=== PATIENT | male | born 1955 | race Caucasian/White ===

== ENCOUNTER 2019-10-13 17:18 | Observation (INO) ==
[2019-10-13] MEDS ORDERED: NS 1000 ML 1,000 ML ONE (17:37)
[2019-10-13] MEDS: NS 1000 ML 1,000 ML IV SCH (18:02)
[2019-10-13 18:24] LABS: BASOPHILS # (AUTO) 0.1 X10^3/uL (0.0-0.1); BASOPHILS % (AUTO) 0.7 % (0.2-1.0); EOSINOPHILS # (AUTO) 0.1 x10^3/uL (0.0-0.2); EOSINOPHILS % (AUTO) 1.2 % (0.9-2.9); HEMATOCRIT 36.8 % (42.0-54.0); HEMOGLOBIN 12.4 g/dL (13.5-18.0); LYMPHOCYTES % (AUTO) 38.7 % (21.0-51.0); MEAN CORPUSCULAR HEMOGLOBIN 29.8 pg (27.0-34.0); MEAN CORPUSCULAR HGB CONC 33.7 g/dL (33.0-35.0); MEAN CORPUSCULAR VOLUME 88.5 fL (80.0-100.0); MEAN PLATELET VOLUME 6.9 fL (7.4-11.0); MONOCYTES # (AUTO) 0.5 x10^3/uL (0.3-0.8); MONOCYTES % (AUTO) 6.9 % (0.0-13.0); NEUTROPHILS # (AUTO) 4.1 x10^3/uL (2.2-4.8); NEUTROPHILS % (AUTO) 52.5 % (42.0-75.0); PLATELET COUNT 563 X10^3/uL (150.0-450.0); RED BLOOD COUNT 4.16 X10^6/uL (4.7-6.0); RED CELL DISTRIBUTION WIDTH 14.3 % (11.6-16.5); WHITE BLOOD COUNT 7.8 X10^3/uL (3.6-10.0)
[2019-10-13 18:27] LABS: BILIRUBIN,URINE NEGATIVE (NEGATIVE); BLOOD/HEMOGLOBIN,URINE 1+ (NEGATIVE); GLUCOSE, URINE NEGATIVE (NEGATIVE); KETONES,URINE NEGATIVE (NEGATIVE); LEUKOCYTE ESTERASE ,URINE 1+ (NEGATIVE); NITRITES,URINE NEGATIVE (NEGATIVE); PROTEIN,URINE 2+ (NEGATIVE); UROBILINOGEN,URINE NORMAL (NORMAL)
[2019-10-13 18:29] VITALS: BMI 30.9
[2019-10-13 18:32] LABS: CALCIUM 9.6 mg/dL (8.5-10.1); CARBON DIOXIDE 26.2 mmol/L (21-32); COR CA(FOR HYPOALB) 10.4 mg/dL (8.5-10.1); CREATININE 1.59 mg/dL (0.70-1.30); TOTAL PROTEIN 8.4 g/dL (6.4-8.2)
[2019-10-13 18:41] LABS: APPEARANCE,URINE SLIGHTLY HAZY (CLEAR); COLOR,URINE YELLOW (YELLOW)
[2019-10-13 18:43] LABS: BACTERIA,URINE TRACE /HPF (NEGATIVE); RBC,URINE 0-2 /HPF (0-3); SQUAMOUS EPITHELIAL CELL,UR MODERATE /HPF (NEGATIVE)
[2019-10-13] MEDS ORDERED: NS 1000 ML 1,000 ML IV ONE (18:45)
[2019-10-13] MEDS: ZOSYN VIAL 2.25 GRAMS 2.25 G in NS 100 ML IV + SPIKE MINIBAG* 100 ML IV SCH ×2 (20:12→22:53)
--- NOTE | 2019-10-13 21:50 | RAD ---
HISTORYSOBSTUDYCHEST, 1 VIEWCOMPARISONJanuary 2019FINDINGSThe trachea is midline. The cardiac silhouette is unremarkable . The lungs are clear without focal infiltrate or effusion. The bony thorax is intact.IMPRESSIONNo acute cardiopulmonary disease.Electronically signed by: MADAY CRUZ (Oct 13, 2019 21:50:29)
[2019-10-14] MEDS ORDERED: HumuLIN R SUBCUT PRN (04:41)
[2019-10-14] MEDS: NS 1000 ML 1,000 ML IV SCH ×3 (06:13→18:01)
[2019-10-14] MEDS: ZOSYN VIAL 2.25 GRAMS 2.25 G in NS 100 ML IV + SPIKE MINIBAG* 100 ML IV SCH ×3 (06:14→20:59)
[2019-10-14 06:16] LABS: BASOPHILS % (AUTO) 0.6 % (0.2-1.0); EOSINOPHILS # (AUTO) 0.1 x10^3/uL (0.0-0.2); EOSINOPHILS % (AUTO) 1.5 % (0.9-2.9); HEMATOCRIT 36.1 % (42.0-54.0); HEMOGLOBIN 12.2 g/dL (13.5-18.0); LYMPHOCYTES # (AUTO) 2.8 X10^3/uL (1.3-2.9); LYMPHOCYTES % (AUTO) 34.7 % (21.0-51.0); MEAN CORPUSCULAR HEMOGLOBIN 29.8 pg (27.0-34.0); MEAN CORPUSCULAR HGB CONC 33.7 g/dL (33.0-35.0); MEAN CORPUSCULAR VOLUME 88.3 fL (80.0-100.0); MEAN PLATELET VOLUME 6.8 fL (7.4-11.0); MONOCYTES # (AUTO) 0.6 x10^3/uL (0.3-0.8); MONOCYTES % (AUTO) 7.4 % (0.0-13.0); NEUTROPHILS # (AUTO) 4.4 x10^3/uL (2.2-4.8); NEUTROPHILS % (AUTO) 55.8 % (42.0-75.0); PLATELET COUNT 481 X10^3/uL (150.0-450.0); RED BLOOD COUNT 4.09 X10^6/uL (4.7-6.0); RED CELL DISTRIBUTION WIDTH 14.1 % (11.6-16.5); WHITE BLOOD COUNT 7.9 X10^3/uL (3.6-10.0)
[2019-10-14 06:34] LABS: ALANINE AMINOTRANSFERASE 22 Units/L (12-78); ALBUMIN 2.7 g/dL (3.4-5.0); ALKALINE PHOSPHATASE 96 Units/L (46-116); ASPARTATE AMINO TRANSFERASE 17 Units/L (15-37); BLOOD UREA NITROGEN 14 mg/dL (7-18); CALCIUM 9.1 mg/dL (8.5-10.1); CARBON DIOXIDE 28.9 mmol/L (21-32); CHLORIDE 102 mmol/L (98-107); COR CA(FOR HYPOALB) 10.1 mg/dL (8.5-10.1); CREATININE 1.19 mg/dL (0.70-1.30); SODIUM 139 mmol/L (136-145); TOTAL PROTEIN 7.6 g/dL (6.4-8.2); eGFR NON BLACK RACES > 60 (>60)
--- NOTE | 2019-10-14 10:47 | DR.UPDATE ---
H&P Update History and Physical Update: History and Physical reviewed and patient examined. Changes noted: Yes with the following: PRESENTED TO THE OFFICE YESTERDAY WITH COMPLAINTS OF WEAKNESS, LOW BLOOD PRESSURE, SHORNTESS OF BREATH, CHILLS, AND NAUSEA. HE IS STATUS POST RIGHT KNEE REPLACEMENT ON 09/20/2019. HE REPORTS THAT SYMPTOMS STARTED AFTER HIS KNEE REPLACEMENT. HE WAS ADMITTED FOR FURTHER EVALUATION AND TREATMENT. ON ADMISSION, VITALS WREE 97.8-97-34-100%-117/68. LABS WERE OBTAINED. ABNORMAL LAB VALUES INCLUDE THE FOLLOWING: RBC 4.16, HGB 12.4, HCT 36.8, PLT COUNT 563, SODIUM 135, CHLORIDE 97, CREATININE 1.59, GLUCOSE 210, LACTIC ACID 5.1, TOTAL PROTEIN 8.4, ALBUMIN 3.0, GLOBULIN 5.4. BLOOD CULTURES WERE OBTAINED. A CHEST XRAY WAS OBTAINED AND REVEALED: NO ACUTE CARDIOPULMONARY DISEASE. HE WAS STARTED ON NORMAL SALINE AT 125ML/HR, IV ZOSYN, HUMULIN R SLIDING SCALE, AND LOVENOX 40 MG SC DAILY. TODAY, WE WILL OBTAIN A BNP, D-DIMER, AND CHEST CT WITH CONTRAST. WE WILL RESUME HIS HOME MEDICATIONS. OTHERWISE, WE WILL FOLLOW UP WITH AM LABS AND CONTINUE TO [facility]. Prescription drug monitoring program results: PDMP was not reviewed H&P Reviewed: Yes Patient was examined?: Yes
[2019-10-14] MEDS: LOVENOX INJ 40 MG SYR SC SCH (12:25)
--- NOTE | 2019-10-14 13:23 | VAS ---
HISTORYRLE EDEMA, S/P RT TKR X A FEW WEEKS AGOSTUDYLOWER EXT VENOUS, UNILATERALCOMPARISONNoneTECHNIQUEMultiple magaña scale and color flow Doppler images of the deep venous system were obtained of the right lower extremity.FINDINGSThe deep venous system of the right low er extremities were evaluated from the level of the common femoral vein INCLUDING THE GREATER SAPHEN OUS VEIN PROXIMALLY through the posterior tibia vein. Normal color flow and augmentation can be obser mirela. In addition, normal compression is seen throughout the deep venous system.IMPRESSIONNegative fo r DVT in the right lower extremity..Electronically signed by: GENOVEVA ROSADO (Oct 14, 2019 13:21:43)
[2019-10-14] MEDS ORDERED: DUONEB 0.5 MG/3 MG (3 mL) NEB PRN (16:07)
[2019-10-14] MEDS: SNACK - Diabetic Appropriate PO SCH (20:48)
[2019-10-15] MEDS: NS 1000 ML 1,000 ML IV SCH ×4 (00:39→10:34)
[2019-10-15] MEDS: ZOSYN VIAL 2.25 GRAMS 2.25 G in NS 100 ML IV + SPIKE MINIBAG* 100 ML IV SCH ×3 (05:04→21:05)
[2019-10-15 06:56] LABS: BASOPHILS % (AUTO) 0.7 % (0.2-1.0); EOSINOPHILS # (AUTO) 0.1 x10^3/uL (0.0-0.2); EOSINOPHILS % (AUTO) 1.1 % (0.9-2.9); HEMATOCRIT 33.4 % (42.0-54.0); HEMOGLOBIN 11.3 g/dL (13.5-18.0); LYMPHOCYTES # (AUTO) 1.8 X10^3/uL (1.3-2.9); LYMPHOCYTES % (AUTO) 31.9 % (21.0-51.0); MEAN CORPUSCULAR HEMOGLOBIN 29.8 pg (27.0-34.0); MEAN CORPUSCULAR HGB CONC 33.8 g/dL (33.0-35.0); MEAN CORPUSCULAR VOLUME 88.2 fL (80.0-100.0); MONOCYTES # (AUTO) 0.4 x10^3/uL (0.3-0.8); MONOCYTES % (AUTO) 7.7 % (0.0-13.0); NEUTROPHILS # (AUTO) 3.4 x10^3/uL (2.2-4.8); NEUTROPHILS % (AUTO) 58.6 % (42.0-75.0); PLATELET COUNT 408 X10^3/uL (150.0-450.0); RED BLOOD COUNT 3.79 X10^6/uL (4.7-6.0); RED CELL DISTRIBUTION WIDTH 14.3 % (11.6-16.5); WHITE BLOOD COUNT 5.7 X10^3/uL (3.6-10.0)
[2019-10-15 07:20] LABS: ALANINE AMINOTRANSFERASE 25 Units/L (12-78); ALBUMIN 2.4 g/dL (3.4-5.0); ALKALINE PHOSPHATASE 85 Units/L (46-116); ASPARTATE AMINO TRANSFERASE 19 Units/L (15-37); BLOOD UREA NITROGEN 6 mg/dL (7-18); CALCIUM 8.4 mg/dL (8.5-10.1); CARBON DIOXIDE 26.3 mmol/L (21-32); CHLORIDE 107 mmol/L (98-107); COR CA(FOR HYPOALB) 9.7 mg/dL (8.5-10.1); CREATININE 0.98 mg/dL (0.70-1.30); SODIUM 141 mmol/L (136-145); TOTAL PROTEIN 6.6 g/dL (6.4-8.2); eGFR NON BLACK RACES > 60 (>60)
[2019-10-15] MEDS: LOVENOX INJ 40 MG SYR SC SCH (08:35)
[2019-10-15] MEDS ORDERED: PRASTERONE 25 MG PO SCH (09:00)
[2019-10-15] MEDS: LOPRESSOR TAB 50 MG PO SCH ×2 (10:33→20:55)
[2019-10-15] MEDS: FLOMAX PO SCH (10:33)
[2019-10-15] MEDS: CIPRO TAB 500 MG PO SCH ×2 (10:33→20:55)
[2019-10-15] MEDS: WELCHOL PO SCH (10:34)
[2019-10-15] MEDS: DIFLUCAN PO SCH (10:34)
--- NOTE | 2019-10-15 13:50 | CT ---
CTA CHEST W/WO CONTIndication: Shortness of breathTechnique: Helical CT images of the chest were obtained with IV contrast. Reformatted images in the coronal and sagittal planes and 3D MIP images were also generated for review.Comparison: 10/05/2019Findings: Contrast bolus timing is suboptimal for detection of PTE. Accounting for this, no central or large segmental pulmonary arterial filling defects are identified. There is no pulmonary arterial dilatation or evidence of right heart strain. Heart is normal in size without pericardial effusion. Coronary atherosclerotic disease and mild calcification of the thoracic aorta and proximal great vessels noted without aneurysm. Central airways are patent. There is no mediastinal or bulky hilar lymphadenopathy. The lungs are clear without focal consolidation. No pleural effusion or pneumothorax.Limited images through the upper abdomen demonstrate no acute abnormality. No aggressive osseous lesions.Impression:Suboptimal CT angiogram without evidence for central/large segmental PTE or additional acute cardiopulmonary abnormality.Electronically signed by: TREVOR COLBY (Oct 15, 2019 13:48:42)
[2019-10-15] MEDS: SNACK - Diabetic Appropriate PO SCH (20:55)
[2019-10-15] MEDS: ZOCOR TAB 20 MG PO SCH (20:56)
[2019-10-15] MEDS: NEURONTIN CAP 300 MG PO PRN (21:00)
[2019-10-16] MEDS: NS 1000 ML 1,000 ML IV SCH ×6 (02:04→21:35)
[2019-10-16] MEDS: ZOSYN VIAL 2.25 GRAMS 2.25 G in NS 100 ML IV + SPIKE MINIBAG* 100 ML IV SCH ×3 (05:17→20:59)
[2019-10-16 06:23] LABS: BASOPHILS % (AUTO) 0.7 % (0.2-1.0); EOSINOPHILS # (AUTO) 0.1 x10^3/uL (0.0-0.2); EOSINOPHILS % (AUTO) 2.1 % (0.9-2.9); HEMATOCRIT 33.6 % (42.0-54.0); HEMOGLOBIN 11.3 g/dL (13.5-18.0); LYMPHOCYTES % (AUTO) 33.4 % (21.0-51.0); MEAN CORPUSCULAR HEMOGLOBIN 29.3 pg (27.0-34.0); MEAN CORPUSCULAR HGB CONC 33.5 g/dL (33.0-35.0); MEAN CORPUSCULAR VOLUME 87.6 fL (80.0-100.0); MEAN PLATELET VOLUME 6.8 fL (7.4-11.0); MONOCYTES # (AUTO) 0.5 x10^3/uL (0.3-0.8); NEUTROPHILS # (AUTO) 3.3 x10^3/uL (2.2-4.8); NEUTROPHILS % (AUTO) 55.8 % (42.0-75.0); PLATELET COUNT 438 X10^3/uL (150.0-450.0); RED BLOOD COUNT 3.84 X10^6/uL (4.7-6.0); RED CELL DISTRIBUTION WIDTH 14.1 % (11.6-16.5); WHITE BLOOD COUNT 5.9 X10^3/uL (3.6-10.0)
[2019-10-16 06:39] LABS: ALANINE AMINOTRANSFERASE 25 Units/L (12-78); ALBUMIN 2.4 g/dL (3.4-5.0); ALKALINE PHOSPHATASE 80 Units/L (46-116); ASPARTATE AMINO TRANSFERASE 19 Units/L (15-37); BLOOD UREA NITROGEN 4 mg/dL (7-18); CALCIUM 8.4 mg/dL (8.5-10.1); CARBON DIOXIDE 25.9 mmol/L (21-32); CHLORIDE 107 mmol/L (98-107); COR CA(FOR HYPOALB) 9.7 mg/dL (8.5-10.1); COR NA(FOR HYPERGLY) 140 mmol/L (136-145); CREATININE 0.99 mg/dL (0.70-1.30); SODIUM 140 mmol/L (136-145); TOTAL PROTEIN 6.6 g/dL (6.4-8.2); eGFR NON BLACK RACES > 60 (>60)
[2019-10-16] MEDS ORDERED: POTASSIUM CHL 60 MEQ/NS 0.45% 500 ML IV PRN (07:09)
[2019-10-16] MEDS ORDERED: POTASSIUM CHL 40 MEQ/NS 0.45% 500 ML IV PRN (07:09)
[2019-10-16] MEDS ORDERED: K-RIDER 10 MEQ/NS 100 ML 10 MEQ/100 ML BAG IV PRN (07:09)
[2019-10-16] MEDS ORDERED: MICRO K EXTEN CAP 10 MEQ PO PRN (07:09)
[2019-10-16] MEDS ORDERED: KLOR-CON PO PRN (07:09)
[2019-10-16] MEDS ORDERED: POTASSIUM CHLORIDE LIQ 20 MEQ UDC PO PRN (07:09)
[2019-10-16] MEDS: FLOMAX PO SCH (09:12)
[2019-10-16] MEDS: CIPRO TAB 500 MG PO SCH ×2 (09:12→20:58)
[2019-10-16] MEDS: DIFLUCAN PO SCH (09:13)
[2019-10-16] MEDS: LOPRESSOR TAB 50 MG PO SCH ×2 (09:13→20:58)
[2019-10-16] MEDS: WELCHOL PO SCH (09:13)
[2019-10-16] MEDS: NEURONTIN CAP 300 MG PO PRN (09:13)
[2019-10-16] MEDS: K-DUR TAB 20 MEQ PO PRN (09:14)
[2019-10-16] MEDS: LOVENOX INJ 40 MG SYR SC SCH (09:15)
[2019-10-16] MEDS: MAGNESIUM SULFATE 1 GRAM/100 mL PREMIX 1 GM/100 ML BAG IV PRN ×2 (09:15→10:30)
[2019-10-16] MEDS: PRASTERONE 25 MG PO SCH (12:05)
[2019-10-16] MEDS: SNACK - Diabetic Appropriate PO SCH (19:30)
[2019-10-16] MEDS: ZOCOR TAB 20 MG PO SCH (20:59)
[2019-10-16] MEDS: ULTRAM PO PRN (22:00)
[2019-10-17] MEDS: NS 1000 ML 1,000 ML IV SCH ×3 (05:38→17:26)
[2019-10-17] MEDS: ZOSYN VIAL 2.25 GRAMS 2.25 G in NS 100 ML IV + SPIKE MINIBAG* 100 ML IV SCH ×3 (05:39→22:11)
[2019-10-17 06:06] LABS: BASOPHILS % (AUTO) 0.7 % (0.2-1.0); EOSINOPHILS # (AUTO) 0.2 x10^3/uL (0.0-0.2); EOSINOPHILS % (AUTO) 2.8 % (0.9-2.9); HEMATOCRIT 32.6 % (42.0-54.0); LYMPHOCYTES # (AUTO) 2.5 X10^3/uL (1.3-2.9); LYMPHOCYTES % (AUTO) 37.5 % (21.0-51.0); MEAN CORPUSCULAR HGB CONC 33.7 g/dL (33.0-35.0); MEAN CORPUSCULAR VOLUME 89.1 fL (80.0-100.0); MEAN PLATELET VOLUME 7.3 fL (7.4-11.0); MONOCYTES # (AUTO) 0.5 x10^3/uL (0.3-0.8); MONOCYTES % (AUTO) 8.1 % (0.0-13.0); NEUTROPHILS # (AUTO) 3.4 x10^3/uL (2.2-4.8); NEUTROPHILS % (AUTO) 50.9 % (42.0-75.0); PLATELET COUNT 408 X10^3/uL (150.0-450.0); RED BLOOD COUNT 3.66 X10^6/uL (4.7-6.0); RED CELL DISTRIBUTION WIDTH 14.3 % (11.6-16.5); WHITE BLOOD COUNT 6.7 X10^3/uL (3.6-10.0)
[2019-10-17 06:15] LABS: ALANINE AMINOTRANSFERASE 24 Units/L (12-78); ALBUMIN 2.4 g/dL (3.4-5.0); ALKALINE PHOSPHATASE 75 Units/L (46-116); ASPARTATE AMINO TRANSFERASE 16 Units/L (15-37); BLOOD UREA NITROGEN 6 mg/dL (7-18); CARBON DIOXIDE 25.1 mmol/L (21-32); CHLORIDE 107 mmol/L (98-107); COR CA(FOR HYPOALB) 9.3 mg/dL (8.5-10.1); COR NA(FOR HYPERGLY) 141 mmol/L (136-145); CREATININE 1.02 mg/dL (0.70-1.30); MAGNESIUM 1.7 mg/dL (1.7-2.9); SODIUM 140 mmol/L (136-145); TOTAL PROTEIN 6.2 g/dL (6.4-8.2); eGFR NON BLACK RACES > 60 (>60)
[2019-10-17] MEDS: K-DUR TAB 20 MEQ PO PRN (06:44)
[2019-10-17] MEDS: ULTRAM PO PRN (06:56)
[2019-10-17] MEDS: NEURONTIN CAP 300 MG PO PRN (09:00)
[2019-10-17] MEDS: WELCHOL PO SCH (09:01)
[2019-10-17] MEDS: CIPRO TAB 500 MG PO SCH (09:01)
[2019-10-17] MEDS: LOVENOX INJ 40 MG SYR SC SCH (09:01)
[2019-10-17] MEDS: LOPRESSOR TAB 50 MG PO SCH ×2 (09:02→20:31)
[2019-10-17] MEDS: FLOMAX PO SCH (09:02)
[2019-10-17] MEDS: PRASTERONE 25 MG PO SCH (09:02)
[2019-10-17] MEDS: DIFLUCAN PO SCH (09:03)
--- NOTE | 2019-10-17 11:47 | PCM.PROG ---
Progress Note Progress Note for Day of Date of Exam: 10/17/19 Subjective Subjective: Pt is a 64 yo m admitted for acute hypotension, weakness, shortness of breath, chills, and nausea. He was initially acidotic with a LA 5.1 that has now normalized. He had recent Venous duplex of BLE negative for DVT and CT negative for PE. His BloodCX 2/2 gram positive cocci, awaiting speciation. He is currently on Zosyn, Cipro, and Diflucan. Will repeat bloodcx today. D/c Cipro and add Vancomycin for MRSA coverage. Continue to monitor and follow up AM labs. Past Medical Family Social History Past Med/Fam/Surg Hx: No changes since H&P Allergies: Allergies No Known Drug Allergies Allergy (Verified 10/13/19 17:59) Review of Systems ROS: No change since H&P Vital Signs and I&O's Vital Signs: Temperature 98.5 F Pulse Rate [Right Brachial] 73 Pulse Rate [Left Brachial] 90 Pulse Rate 84 Respiratory Rate 19 Blood Pressure [Right Arm] 171/87 Blood Pressure [Left Arm] 120/67 Blood Pressure 118/67 O2 Sat by Pulse Oximetry 99 Intake and Output: Intake & Output 10/14/19 10/15/19 10/16/19 10/17/19 23:59 23:59 23:59 23:59 Intake Total 2490 / 2490 1580 / 1580 3205 / 3205 60 / 60 Output Total 450 / 450 Balance 2040 / 2040 1580 / 1580 3205 / 3205 60 / 60 Physical Exam Oriented: Normal Eyes: Normal Ear: Normal Nose: Normal Throat: Normal Respiratory: Normal Cardiovascular: Normal : Normal Auscultation: Bowel Sounds: Normal Tenderness: Normal Skin: Normal Musculoskeletal: Normal Psychiatric: Normal Mood Description: Calm Speech Pattern: Clear and Appropriate Laboratory and Diagnostics Result Diagrams: 10/17/19 05:20 10/17/19 05:20 Labs: 10/13/19 17:53 Blood Blood Culture - Preliminary 10/13/19 17:49 Blood Blood Culture - Preliminary Laboratory WBC 6.7 X10^3/uL (3.6-10.0) 10/17/19 05:20 RBC 3.66 X10^6/uL (4.7-6.0) L 10/17/19 05:20 Hgb 11.0 g/dL (13.5-18.0) L 10/17/19 05:20 Hct 32.6 % (42.0-54.0) L 10/17/19 05:20 MCV 89.1 fL (80.0-100.0) 10/17/19 05:20 MCH 30.0 pg (27.0-34.0) 10/17/19 05:20 MCHC 33.7 g/dL (33.0-35.0) 10/17/19 05:20 RDW 14.3 % (11.6-16.5) 10/17/19 05:20 Plt Count 408 X10^3/uL (150.0-450.0) 10/17/19 05:20 MPV 7.3 fL (7.4-11.0) L 10/17/19 05:20 Neut % (Auto) 50.9 % (42.0-75.0) 10/17/19 05:20 Lymph % (Auto) 37.5 % (21.0-51.0) 10/17/19 05:20 [place] % (Auto) 8.1 % (0.0-13.0) 10/17/19 05:20 Eos % (Auto) 2.8 % (0.9-2.9) 10/17/19 05:20 Baso % (Auto) 0.7 % (0.2-1.0) 10/17/19 05:20 Neut # (Auto) 3.4 x10^3/uL (2.2-4.8) 10/17/19 05:20 Lymph # (Auto) 2.5 X10^3/uL (1.3-2.9) 10/17/19 05:20 [place] # (Auto) 0.5 x10^3/uL (0.3-0.8) 10/17/19 05:20 Eos # (Auto) 0.2 x10^3/uL (0.0-0.2) 10/17/19 05:20 Baso # (Auto) 0.0 X10^3/uL (0.0-0.1) 10/17/19 05:20 Absolute Nucleated RBC 0.1 /100WBC 10/17/19 05:20 D-Dimer 3620 ng/mL (0-400) H* 10/14/19 05:33 Sodium 140 mmol/L (136-145) 10/17/19 05:20 Corrected Sodium 141 mmol/L (136-145) 10/17/19 05:20 Potassium 3.6 mmol/L (3.5-5.1) 10/17/19 05:20 Chloride 107 mmol/L (98-107) 10/17/19 05:20 Carbon Dioxide 25.1 mmol/L (21-32) 10/17/19 05:20 BUN 6 mg/dL (7-18) L 10/17/19 05:20 Creatinine 1.02 mg/dL (0.70-1.30) 10/17/19 05:20 Est GFR (MDRD) Af Amer > 60 (>60) 10/17/19 05:20 Est GFR (MDRD) Non-Af > 60 (>60) 10/17/19 05:20 Glucose 123 mg/dL (65-99) H 10/17/19 05:20 POC Glucose (mg/dL) 116 mg/dL (65-99) H 10/17/19 05:25 Lactic Acid 1.5 mmol/L (0.4-2.0) 10/14/19 00:57 Calcium 8.0 mg/dL (8.5-10.1) L 10/17/19 05:20 Corrected Calcium 9.3 mg/dL (8.5-10.1) 10/17/19 05:20 Magnesium 1.7 mg/dL (1.7-2.9) 10/17/19 05:20 Total Bilirubin 0.20 mg/dL (0.2-1.0) 10/17/19 05:20 AST 16 Units/L (15-37) 10/17/19 05:20 ALT 24 Units/L (12-78) 10/17/19 05:20 Alkaline Phosphatase 75 Units/L (46-116) 10/17/19 05:20 B-Natriuretic Peptide 10.5 pg/mL (0-79) 10/14/19 05:33 Total Protein 6.2 g/dL (6.4-8.2) L 10/17/19 05:20 Albumin 2.4 g/dL (3.4-5.0) L 10/17/19 05:20 Globulin 3.8 g/dL (2.5-4.5) 10/17/19 05:20 Albumin/Globulin Ratio 0.6 Ratio (1.1-2.1) L 10/17/19 05:20 Specimen Type Clean catch urine 10/13/19 18:05 Urine Color Yellow (YELLOW) 10/13/19 18:05 Urine Appearance Slightly hazy (CLEAR) 10/13/19 18:05 Urine pH 5.0 (5.0 - 8.0) 10/13/19 18:05 Ur Specific [place] 1.025 (1.000-1.030) 10/13/19 18:05 Urine Protein 2+ (NEGATIVE) 10/13/19 18:05 Urine Glucose (UA) Negative (NEGATIVE) 10/13/19 18: Urine Ketones Negative (NEGATIVE) 10/13/19 18:05 Urine Occult Blood 1+ (NEGATIVE) 10/13/19 18:05 Urine Nitrite Negative (NEGATIVE) 10/13/19 18: Urine Bilirubin Negative (NEGATIVE) 10/13/19 18:05 Urine Urobilinogen Normal (NORMAL) 10/13/19 18:05 Ur Leukocyte Esterase 1+ (NEGATIVE) 10/13/19 18:05 Urine RBC 0-2 /HPF (0-3) 10/13/19 18:05 Urine WBC 0-2 /HPF (0-5) 10/13/19 18:05 Ur Squamous Epith Cells Moderate /HPF (NEGATIVE) 10/13/19 18:05 Urine Bacteria Trace /HPF (NEGATIVE) 10/13/19 18:05 Ur Culture Indicated? No/not indicated 10/13/19 18:05 Plan (1) Bacteremia due to Gram-positive bacteria: Status: Acute Plan: Abx:Vanc+Zosyn Repeat BloodCx
[2019-10-17] MEDS ORDERED: PHARMACY CONSULT - VANCOMYCIN XX SCH (12:00)
[2019-10-17] MEDS ORDERED: NS 250 ML IV 250 ML IV ONE (14:22)
[2019-10-17] MEDS ORDERED: VANCOMYCIN HCL ONE ×2 (14:23)
[2019-10-17] MEDS: VANCOMYCIN HCL 250 MG, VANCOMYCIN HCL 1 G in NS 250 ML IV 250 ML IV SCH (14:52)
[2019-10-17] MEDS: SNACK - Diabetic Appropriate PO SCH (20:31)
[2019-10-17] MEDS: ZOCOR TAB 20 MG PO SCH (20:32)
--- NOTE | 2019-10-17 21:55 | PCM.PROG ---
Progress Note - Progress Note for Day of Date of Exam: 10/15/19 - Subjective Subjective: WAS ADMITTED FOR WEAKNESS, DEHYRATION, HYPOTENSION, AND SHORTNESS OF BREATH. HE IS STATUS POST RECENT RIGHT TKA. TODAY, HE CONTINUES WITH COMPLAINTS OF WEAKNESS AND SHORTNESS OF BREATH. HE IS NOTED WITH LABORED BREATHING ON MORNING ROUNDS. ON EXAMINATION, HEART IS REGULAR IN RATE AND RHYTHM. BILATERAL LUNGS ARE NOTED WITH DIMINISHED LUNG SOUNDS THROUGHOUT. ABDOMEN IS ROUND, SOFT, AND NON-TENDER WITH NORMAL BOWEL SOUNDS NOTED IN ALL QUADRANTS. NO LOWER EXTREMITY SWELLING IS NOTED. HIS VITALS THIS MORNING ARE: 98.9-100-20-97%-139/81. LABS WERE OBTAINED. ABNORMAL LAB VALUES INCLUDE THE FOLLOWING: RBC 3.79, HGB 11.3, HCT 33.4, BUN6, GLUCOSE 110, CALCIUM 8.4, ALBUMIN 2.4. BLOOD CULTURES ARE PENDING. VENOUS DOPPLER WAS OBTAINED YESTERDAY AND IS NEGATIVE FOR DVT. HE IS CURRENTLY RECEIVING IV FLUIDS, IV CIPRO, IV ZOSYN. TODAY, WE WILL OBTAIN A CHEST CT WITH CONTRAST TO RULE OUT PE. OTHERWISE, WE PLAN TO FOLLOW UP WITH AM LABS AND CONTINUE TO MONITOR. - Past Medical Family Social History Past Med/Fam/Surg Hx: No changes since H&P Allergies: Allergies No Known Drug Allergies Allergy (Verified 10/13/19 17:59) - Review of Systems ROS: No change since H&P - Vital Signs and I&O's Vital Signs: Temperature 98.2 F Pulse Rate [Right Brachial] 76 Pulse Rate [Left Brachial] 90 Pulse Rate 85 Respiratory Rate 20 Blood Pressure [Right Arm] 145/95 Blood Pressure [Left Arm] 153/80 Blood Pressure 118/67 O2 Sat by Pulse Oximetry 95 Intake and Output: Intake & Output 10/15/19 10/16/19 10/17/19 10/18/19 11:59 11:59 11:59 11:59 Intake Total 2440 / 2440 2059 2785 / 2785 1560 / 1560 Balance 2440 / 2440 2059 2785 / 2785 1560 / 1560 - Physical Exam Oriented: Normal Eyes: Normal Ear: Normal Nose: Normal Throat: Normal Respiratory: Generalized, Diminished Cardiovascular: Normal : Normal Auscultation: Bowel Sounds: Normal Palpation: Normal Tenderness: Normal Skin: Normal Musculoskeletal: Normal Psychiatric: Normal Mood Description: Calm Speech Pattern: Clear, Appropriate - Laboratory and Diagnostics Result Diagrams: 10/17/19 05:20 10/17/19 05:20 Labs: 10/13/19 17:53 Blood Blood Culture - Preliminary 10/13/19 17:49 Blood Blood Culture - Preliminary Laboratory WBC 6.7 X10^3/uL (3.6-10.0) 10/17/19 05:20 RBC 3.66 X10^6/uL (4.7-6.0) L 10/17/19 05:20 Hgb 11.0 g/dL (13.5-18.0) L 10/17/19 05:20 Hct 32.6 % (42.0-54.0) L 10/17/19 05:20 MCV 89.1 fL (80.0-100.0) 10/17/19 05:20 MCH 30.0 pg (27.0-34.0) 10/17/19 05:20 MCHC 33.7 g/dL (33.0-35.0) 10/17/19 05:20 RDW 14.3 % (11.6-16.5) 10/17/19 05:20 Plt Count 408 X10^3/uL (150.0-450.0) 10/17/19 05:20 MPV 7.3 fL (7.4-11.0) L 10/17/19 05:20 Neut % (Auto) 50.9 % (42.0-75.0) 10/17/19 05:20 Lymph % (Auto) 37.5 % (21.0-51.0) 10/17/19 05:20 [place] % (Auto) 8.1 % (0.0-13.0) 10/17/19 05:20 Eos % (Auto) 2.8 % (0.9-2.9) 10/17/19 05:20 Baso % (Auto) 0.7 % (0.2-1.0) 10/17/19 05:20 Neut # (Auto) 3.4 x10^3/uL (2.2-4.8) 10/17/19 05:20 Lymph # (Auto) 2.5 X10^3/uL (1.3-2.9) 10/17/19 05:20 [place] # (Auto) 0.5 x10^3/uL (0.3-0.8) 10/17/19 05:20 Eos # (Auto) 0.2 x10^3/uL (0.0-0.2) 10/17/19 05:20 Baso # (Auto) 0.0 X10^3/uL (0.0-0.1) 10/17/19 05:20 Absolute Nucleated RBC 0.1 /100WBC 10/17/19 05:20 D-Dimer 3620 ng/mL (0-400) H* 10/14/19 05:33 Sodium 140 mmol/L (136-145) 10/17/19 05:20 Corrected Sodium 141 mmol/L (136-145) 10/17/19 05:20 Potassium 3.6 mmol/L (3.5-5.1) 10/17/19 05:20 Chloride 107 mmol/L (98-107) 10/17/19 05:20 Carbon Dioxide 25.1 mmol/L (21-32) 10/17/19 05:20 BUN 6 mg/dL (7-18) L 10/17/19 05:20 Creatinine 1.02 mg/dL (0.70-1.30) 10/17/19 05:20 Est GFR (MDRD) Af Amer > 60 (>60) 10/17/19 05:20 Est GFR (MDRD) Non-Af > 60 (>60) 10/17/19 05:20 Glucose 123 mg/dL (65-99) H 10/17/19 05:20 POC Glucose (mg/dL) 132 mg/dL (65-99) H 10/17/19 20:00 Lactic Acid 1.5 mmol/L (0.4-2.0) 10/14/19 00:57 Calcium 8.0 mg/dL (8.5-10.1) L 10/17/19 05:20 Corrected Calcium 9.3 mg/dL (8.5-10.1) 10/17/19 05:20 Magnesium 1.7 mg/dL (1.7-2.9) 10/17/19 05:20 Total Bilirubin 0.20 mg/dL (0.2-1.0) 10/17/19 05:20 AST 16 Units/L (15-37) 10/17/19 05:20 ALT 24 Units/L (12-78) 10/17/19 05:20 Alkaline Phosphatase 75 Units/L (46-116) 10/17/19 05:20 B-Natriuretic Peptide 10.5 pg/mL (0-79) 10/14/19 05:33 Total Protein 6.2 g/dL (6.4-8.2) L 10/17/19 05:20 Albumin 2.4 g/dL (3.4-5.0) L 10/17/19 05:20 Globulin 3.8 g/dL (2.5-4.5) 10/17/19 05:20 Albumin/Globulin Ratio 0.6 Ratio (1.1-2.1) L 10/17/19 05:20 Specimen Type Clean catch urine 10/13/19 18:05 Urine Color Yellow (YELLOW) 10/13/19 18:05 Urine Appearance Slightly hazy (CLEAR) 10/13/19 18:05 Urine pH 5.0 (5.0 - 8.0) 10/13/19 18:05 Ur Specific [place] 1.025 (1.000-1.030) 10/13/19 18:05 Urine Protein 2+ (NEGATIVE) 10/13/19 18:05 Urine Glucose (UA) Negative (NEGATIVE) 10/13/19 18:05 Urine Ketones Negative (NEGATIVE) 10/13/19 18:05 Urine Occult Blood 1+ (NEGATIVE) 10/13/19 18:05 Urine Nitrite Negative (NEGATIVE) 10/13/19 18:05 Urine Bilirubin Negative (NEGATIVE) 10/13/19 18:05 Urine Urobilinogen Normal (NORMAL) 10/13/19 18:05 Ur Leukocyte Esterase 1+ (NEGATIVE) 10/13/19 18:05 Urine RBC 0-2 /HPF (0-3) 10/13/19 18:05 Urine WBC 0-2 /HPF (0-5) 10/13/19 18:05 Ur Squamous Epith Cells Moderate /HPF (NEGATIVE) 10/13/19 18:05 Urine Bacteria Trace /HPF (NEGATIVE) 10/13/19 18:05 Ur Culture Indicated? No/not indicated 10/13/19 18:05 - Plan (1) Dehydration Status: Acute Plan: IV FLUIDS, CONTINUE TO MONITOR (2) Weakness Status: Acute (3) Dyspnea Status: Acute Qualifiers: Dyspnea type: shortness of breath Qualified Code(s): R06.02 - Shortness of breath; R06.00 - Dyspnea, unspecified; R06.01 - Orthopnea Plan: OBTAIN CHEST CTA, CONTINUE TO MONITOR (4) Status post right knee replacement Status: Acute (5) Positive blood cultures Status: Acute Plan: IV CIPRO, IV ZOSYN, CONTINUE TO MONITOR
[2019-10-18] MEDS ORDERED: NS 250 ML IV 250 ML IV ONE (01:31)
[2019-10-18] MEDS ORDERED: VANCOMYCIN HCL ONE ×2 (01:31)
[2019-10-18] MEDS: VANCOMYCIN HCL 250 MG, VANCOMYCIN HCL 1 G in NS 250 ML IV 250 ML IV SCH (02:08)
[2019-10-18] MEDS: NS 1000 ML 1,000 ML IV SCH ×2 (02:08→07:00)
[2019-10-18] MEDS: ZOSYN VIAL 2.25 GRAMS 2.25 G in NS 100 ML IV + SPIKE MINIBAG* 100 ML IV SCH (06:01)
[2019-10-18 06:18] LABS: BASOPHILS % (AUTO) 0.4 % (0.2-1.0); EOSINOPHILS # (AUTO) 0.2 x10^3/uL (0.0-0.2); EOSINOPHILS % (AUTO) 3.7 % (0.9-2.9); HEMATOCRIT 33.2 % (42.0-54.0); HEMOGLOBIN 10.9 g/dL (13.5-18.0); LYMPHOCYTES # (AUTO) 2.4 X10^3/uL (1.3-2.9); LYMPHOCYTES % (AUTO) 37.2 % (21.0-51.0); MEAN CORPUSCULAR HEMOGLOBIN 29.1 pg (27.0-34.0); MEAN CORPUSCULAR VOLUME 88.3 fL (80.0-100.0); MEAN PLATELET VOLUME 6.8 fL (7.4-11.0); MONOCYTES # (AUTO) 0.5 x10^3/uL (0.3-0.8); MONOCYTES % (AUTO) 7.6 % (0.0-13.0); NEUTROPHILS # (AUTO) 3.3 x10^3/uL (2.2-4.8); NEUTROPHILS % (AUTO) 51.1 % (42.0-75.0); PLATELET COUNT 386 X10^3/uL (150.0-450.0); RED BLOOD COUNT 3.76 X10^6/uL (4.7-6.0); RED CELL DISTRIBUTION WIDTH 13.9 % (11.6-16.5); WHITE BLOOD COUNT 6.5 X10^3/uL (3.6-10.0)
[2019-10-18 06:27] LABS: ALANINE AMINOTRANSFERASE 24 Units/L (12-78); ALBUMIN 2.3 g/dL (3.4-5.0); ALKALINE PHOSPHATASE 76 Units/L (46-116); ASPARTATE AMINO TRANSFERASE 15 Units/L (15-37); BLOOD UREA NITROGEN 5 mg/dL (7-18); CALCIUM 8.4 mg/dL (8.5-10.1); CARBON DIOXIDE 25.3 mmol/L (21-32); CHLORIDE 107 mmol/L (98-107); COR CA(FOR HYPOALB) 9.8 mg/dL (8.5-10.1); COR NA(FOR HYPERGLY) 140 mmol/L (136-145); CREATININE 0.91 mg/dL (0.70-1.30); SODIUM 140 mmol/L (136-145); TOTAL PROTEIN 6.3 g/dL (6.4-8.2); eGFR NON BLACK RACES > 60 (>60)
[2019-10-18] MEDS: WELCHOL PO SCH (08:42)
[2019-10-18] MEDS: DIFLUCAN PO SCH (08:42)
[2019-10-18] MEDS: ULTRAM PO PRN (08:42)
[2019-10-18] MEDS: FLOMAX PO SCH (08:43)
[2019-10-18] MEDS: LOPRESSOR TAB 50 MG PO SCH (08:43)
[2019-10-18] MEDS: LOVENOX INJ 40 MG SYR SC SCH (08:45)
[2019-10-18 08:48] VITALS: BP 133/80
[2019-10-18] MEDS ORDERED: PHARMACY COMMENT IV NR (20:30)
== END 2019-10-18 12:00 | disposition home or self-care (01) ==
LOC: MED/SURG
PROVIDERS: ADMIT Internal Medicine; ATTEND Internal Medicine
DX: R60.0 Localized edema; Z96.651 Presence of right artificial knee joint; E11.65 Type 2 diabetes mellitus with hyperglycemia; R26.89 Other abnormalities of gait and mobility; I95.89 Other hypotension; J44.9 Chronic obstructive pulmonary disease, unspecified; R06.02 Shortness of breath; A41.1 Sepsis due to other specified staphylococcus; F41.8 Other specified anxiety disorders; E86.0 Dehydration; R53.1 Weakness
CPT/HCPCS: 36415; 71010; 71045; 71275; 80053; 81001; 83605; 83735; 83880; 85025; 85378; 87040; 87077; 87186; 93971; 94760; 96360; 96361; 96372; 97162; 97165; 97530; A4216; A4222; G0378; J1650; J2543; J3370; J3475; J7030; J7050

== ENCOUNTER 2021-02-09 08:46 | Inpatient (IN) ==
[2021-02-09] MEDS ORDERED: MORPHINE SULFATE INJ 4 MG IVP STA (09:05)
[2021-02-09] MEDS ORDERED: NS 1000 ML 1,000 ML IV STA (09:05)
[2021-02-09] MEDS ORDERED: ZOFRAN INJ 4 MG VIAL IVP STA (09:05)
--- NOTE | 2021-02-09 09:05 | DR.UPM ---
HPI Time Seen Time Seen by Provider: 02/09/21 08:55 HPI Comment HPI Comment: PATIENT WITH A HISTORY OF TYPE 2 DIABETES COMPLAINS OF URINARY SYMPTOMS, URGENCY, FREQUENCY AND DYSURIA X 1 WEEK, ASSOCIATED WITH LEFT FLANK PAIN AND LOWER ABDOMINAL PAIN. HAS CHEST TIGHTNESS AND PAIN UPON INSPIRATION. DENIES FEVER, CHILLS, NAUSEA, EMESIS, DIARRHEA OR HEMATURIA. Complaint Chief Complaint Doctors Comments: DYSURIA, FREQUENCY, URGENCY, LEFT FLANK PAIN, RIGHT LOWER ABDOMINAL PAIN Reviewed Nurses Notes Reviewed: Yes Source History Provided: Patient Mode of Arrival Mode of Arrival: EMS Duration Duration: Constant How lon Duration: Days Context Urinary Symptoms: Dysuria, Frequency and Urgency Severity Pain: Severe Location Pain Location: Abdomen, Left and Flank Associated Signs and Symptoms Associated Signs and Symptoms: Nausea PMH PMH Past Medical History: Diabetes Past Surgical History: Yes Surgical History: Cholecystectomy, Joint Replacement and Other Family History Family Medical History: Diabetes Mellitus, Cancer and PR Social History Do you use any recreational Drugs:: No ROS Review of Systems Constitutional: No Symptoms Reported Eyes: No Symptoms Reported ENTM: No Symptoms Reported Respiratoy: No Symptoms Reported Cardiovascular: No Symptoms Reported Gastrointestinal/Abdominal: See HPI and Abdominal Pain Genitourinary: See HPI, Dysuria, Frequency and Pain Neurological: No Symptoms Reported Musculoskeletal: No Symptoms Reported Integumentary: No Symptoms Reported Hematologic/Lymphatic: No Symptoms Reported Endocrine: No Symptoms Reported Psychiatric: No Symptoms Reported All Other Systems: Reviewed and Negative PE Vital Signs Vitals: Temperature 97.7 F Pulse Rate 86 Respiratory Rate 16 Blood Pressure [Right Arm] 145/95 Blood Pressure [Left Arm] 133/80 Blood Pressure 128/77 O2 Sat by Pulse Oximetry 97 General Limitations: No Limitations General Appearance: Alert and In Distress (MINIMAL) Head Head Exam: Normal Inspection and Atraumatic Eyes Eye exam: Normal Appearance, PERRL and EOMI ENT ENT Exam: Normal Exam and Normal Oropharynx Neck Neck Exam: Normal Inspection and Full ROM Chest Chest Inspection: Normal Inspection and Symmetric Chest Wall Rise Respiratory Respiratory Exam: Normal Lung Sounds Bilat Respiratory Exam: Bilateral: Clear to Auscultation Cardiovascular Cardiovascular Exam: Regular Rate and Normal Rhythm Abdominal Exam Abdominal Exam: Normal Inspection, Normal Bowel Sounds, Soft and Tenderness ( BILATERAL LOWER QUADRANT, WITH GUARDING) Abdominal Tenderness: RLQ, LUQ and Moderate Extremities Extremities Exam: Normal Inspection, Full ROM and Tenderness Back Back Exam: Normal Inspection and (R) CVA Tenderness Neurologic Neurological Exam: Alert and Oriented X3 Psychiatric Psychiatric Exam: Normal Affect and Normal Mood Skin Skin Exam: Warm, Dry and Intact MDM Differential Diagnosis Differential Diagnosis: Appendicitis, Pyelonephritis and Urolithiasis Other Differential Diagnosis: ACUTE COLITIS, NEPHROLITHIASIS, URINARY TRACT INFECTION COURSE Treatment Treatment: IV NORMAL SALINE 200ML/HR, ZOFRAN 4MG, MORPHINE 4MG IV, 1026 PLACED ON SEPSIS PROTOCOL 97KG/30ML, LACTIC ACID 3.6, WBC 20,8OO, URINE WITH WBC TNTC, SAUL 2+, AFTER 2 SETS OF BLOOD CULTURES, LEVAQUIN 750MG IVPB AND FLAGYL 500MG IVPB Reevaluation 1st: Improved Consultation Call Returned: 11:53 Consultation Comments: DISCUSSED FINDINGS WITH DR DORADO FOR SURGICAL CONSULT, DR NORRIS AT 1200 NOTIFIED FOR ADMIT INPATIENT ROR Labs Reviewed Laboratory Results Reviewed?: Yes Result Diagrams: 02/09/21 09:31 02/09/21 09:31 Laboratory: WBC 20.8 X10^3/uL (3.6-10.0) H 02/09/21 09:31 RBC 4.49 X10^6/uL (4.7-6.0) L 02/09/21 09:31 Hgb 13.2 g/dL (13.5-18.0) L 02/09/21 09:31 Hct 39.3 % (42.0-54.0) L 02/09/21 09:31 MCV 87.7 fL (80.0-100.0) 02/09/21 09:31 MCH 29.5 pg (27.0-34.0) 02/09/21 09:31 MCHC 33.6 g/dL (33.0-35.0) 02/09/21 09:31 RDW 13.6 % (11.6-16.5) 02/09/21 09:31 Plt Count 563 X10^3/uL (150.0-450.0) H 02/09/21 09:31 MPV 7.2 fL (7.4-11.0) L 02/09/21 09:31 Neut % (Auto) 88.8 % (42.0-75.0) H 02/09/21 09:31 Lymph % (Auto) 5.5 % (21.0-51.0) L 02/09/21 09:31 [place] % (Auto) 5.2 % (0.0-13.0) 02/09/21 09:31 Eos % (Auto) 0.1 % (0.9-2.9) L 02/09/21 09:31 Baso % (Auto) 0.4 % (0.2-1.0) 02/09/21 09:31 Neut # (Auto) 18.4 x10^3/uL (2.2-4.8) H 02/09/21 09:31 Lymph # (Auto) 1.2 X10^3/uL (1.3-2.9) L 02/09/21 09:31 [place] # (Auto) 1.1 x10^3/uL (0.3-0.8) H 02/09/21 09:31 Eos # (Auto) 0.0 x10^3/uL (0.0-0.2) 02/09/21 09: Baso # (Auto) 0.1 X10^3/uL (0.0-0.1) 02/09/21 09:31 Absolute Nucleated RBC 0.0 /100WBC 02/09/21 09:31 PT 14.8 SECONDS (11.8-14.3) 02/09/21 09:31 INR Target Range - 02/09/21 09:31 INR 1.22 (0.8-1.3) 02/09/21 09:31 Sodium 131 mmol/L (136-145) L 02/09/21 09:31 Corrected Sodium 137 mmol/L (136-145) 02/09/21 09:31 Potassium 4.0 mmol/L (3.5-5.1) 02/09/21 09:31 Chloride 97 mmol/L (98-107) L 02/09/21 09:31 Carbon Dioxide 25.2 mmol/L (21-32) 02/09/21 09:31 BUN 16 mg/dL (7-18) 02/09/21 09:31 Creatinine 1.65 mg/dL (0.70-1.30) H 02/09/21 09:31 Est GFR (MDRD) Af Amer 54 (>60) L 02/09/21 09:31 Est GFR (MDRD) Non-Af 45 (>60) L 02/09/21 09:31 Glucose 345 mg/dL (65-99) H 02/09/21 09:31 POC Glucose (mg/dL) 171 mg/dL (65-99) H 02/09/21 12:40 Lactic Acid 3.6 mmol/L (0.4-2.0) H 02/09/21 09:31 Calcium 9.2 mg/dL (8.5-10.1) 02/09/21 09:31 Corrected Calcium 10.3 mg/dL (8.5-10.1) H 02/09/21 09:31 Total Bilirubin 0.70 mg/dL (0.2-1.0) 02/09/21 09:31 AST 11 Units/L (15-37) L 02/09/21 09:31 ALT 19 Units/L (12-78) 02/09/21 09:31 Alkaline Phosphatase 100 Units/L (46-116) 02/09/21 09:31 Troponin I < 0.02 ng/mL (0-1.5) 02/09/21 09:31 Total Protein 8.3 g/dL (6.4-8.2) H 02/09/21 09:31 Albumin 2.6 g/dL (3.4-5.0) L 02/09/21 09:31 Globulin 5.7 g/dL (2.5-4.5) H 02/09/21 09:31 Albumin/Globulin Ratio 0.5 Ratio (1.1-2.1) L 02/09/21 09:31 Amylase 20 Units/L (25-115) L 02/09/21 09:31 Lipase 90 Units/L (73-393) 02/09/21 09:31 Specimen Type Clean catch urine 02/09/21 09:25 Urine Color [place] (YELLOW) 02/09/21 09:25 Urine Appearance Cloudy (CLEAR) 02/09/21 09:25 Urine pH Cancelled 02/09/21 09:25 Ur Specific [place] Cancelled 02/09/21 09:25 Urine Protein Cancelled 02/09/21 09:25 Urine Glucose (UA) Cancelled 02/09/21 09:25 Urine Ketones Cancelled 02/09/21 09:25 Urine Occult Blood Cancelled 02/09/21 09:25 Urine Nitrite Cancelled 02/09/21 09:25 Urine Bilirubin Cancelled 02/09/21 09:25 Urine Urobilinogen Cancelled 02/09/21 09:25 Ur Leukocyte Esterase Cancelled 02/09/21 09:25 Urine RBC 10-20 /HPF (0-3) A 02/09/21 09:25 Urine WBC Tntc /HPF (0-5) A 02/09/21 09:25 Ur Squamous Epith Cells Few /HPF (NEGATIVE) 02/09/21 09:25 Urine Bacteria 2+ /HPF (NEGATIVE) 02/09/21 09:25 Ur Culture Indicated? Yes/culture set up 02/09/21 09:25 Acetone, Semi-Quant Negative (NEGATIVE) 02/09/21 09:31 SARS CoV-2 RNA Rapid ADE Negative (NEGATIVE) 02/09/21 12:08 XRAY X-ray Results: ABDOMINAL PELVIC CT SCAN INTRAVENOUS CONTRAST CONSISTENT WITH A BLADDER LESION AT THE LEFT SUPERIOR ASPECT OF URINARY BLADDER WITH SURROUNDING FAT STRANDING, LESION MEASURES 5.3 X 5.1 S 3.7, THERE IS A TRACT EXTENDING TO THE SIGMOID COLON. THIS MAY REPRESENT AN ABSCESS FROM PERFORATED SIGMOID DIVERTICULITIS OR PERFORATED COLONIC NEOPLASM. EKG Rate: 80 [place]: Normal and LAD (BORDERLINE) Rhythm: NSR Opioid Opioid Risk Tool Age (Tony box if 16-45): No History of Preadolescent Sexual Abuse: No Total: 0 Total Score Risk Category: Low Risk Copyright: Daniel HOLLAND predicting aberrant behaviors Diagnosis Discharge Problem: Diverticulitis of sigmoid colon, Bladder fistula, Urinary tract infection
[2021-02-09 09:09] VITALS: BMI 35.6
[2021-02-09] MEDS ORDERED: ZOFRAN INJ 4 MG VIAL ONE (09:18)
[2021-02-09] MEDS ORDERED: MORPHINE SULFATE INJ 4 MG ONE (09:18)
[2021-02-09] MEDS ORDERED: NS 1000 ML 1,000 ML ONE ×3 (09:19→12:23)
--- NOTE | 2021-02-09 09:40 | RAD ---
HISTORYCHEST PAINSTUDYCHEST, 1 VIEWCOMPARISONPortable chest October 13, 2019FINDINGSThe trachea is midline. The cardiac silhouette is unremarkable . The lungs are clear without focal infiltrate or effusion. The bony thorax is unremarkable.IMPRESSIONNo acute cardiopulmonary disease.Electronically signed by: GENOVEVA ROSADO (February 09, 2021 09:38:22)
[2021-02-09 09:49] LABS: BASOPHILS # (AUTO) 0.1 X10^3/uL (0.0-0.1); BASOPHILS % (AUTO) 0.4 % (0.2-1.0); EOSINOPHILS % (AUTO) 0.1 % (0.9-2.9); HEMATOCRIT 39.3 % (42.0-54.0); HEMOGLOBIN 13.2 g/dL (13.5-18.0); LYMPHOCYTES # (AUTO) 1.2 X10^3/uL (1.3-2.9); LYMPHOCYTES % (AUTO) 5.5 % (21.0-51.0); MEAN CORPUSCULAR HEMOGLOBIN 29.5 pg (27.0-34.0); MEAN CORPUSCULAR HGB CONC 33.6 g/dL (33.0-35.0); MEAN CORPUSCULAR VOLUME 87.7 fL (80.0-100.0); MEAN PLATELET VOLUME 7.2 fL (7.4-11.0); MONOCYTES # (AUTO) 1.1 x10^3/uL (0.3-0.8); MONOCYTES % (AUTO) 5.2 % (0.0-13.0); NEUTROPHILS # (AUTO) 18.4 x10^3/uL (2.2-4.8); NEUTROPHILS % (AUTO) 88.8 % (42.0-75.0); PLATELET COUNT 563 X10^3/uL (150.0-450.0); RED BLOOD COUNT 4.49 X10^6/uL (4.7-6.0); RED CELL DISTRIBUTION WIDTH 13.6 % (11.6-16.5); WHITE BLOOD COUNT 20.8 X10^3/uL (3.6-10.0)
[2021-02-09 10:05] LABS: LACTIC ACID 3.6 mmol/L (0.4-2.0)
[2021-02-09 10:06] LABS: ALANINE AMINOTRANSFERASE 19 Units/L (12-78); ALBUMIN 2.6 g/dL (3.4-5.0); ALKALINE PHOSPHATASE 100 Units/L (46-116); AMYLASE 20 Units/L (25-115); ASPARTATE AMINO TRANSFERASE 11 Units/L (15-37); BLOOD UREA NITROGEN 16 mg/dL (7-18); CALCIUM 9.2 mg/dL (8.5-10.1); CARBON DIOXIDE 25.2 mmol/L (21-32); CHLORIDE 97 mmol/L (98-107); COR CA(FOR HYPOALB) 10.3 mg/dL (8.5-10.1); COR NA(FOR HYPERGLY) 137 mmol/L (136-145); CREATININE 1.65 mg/dL (0.70-1.30); LIPASE 90 Units/L (73-393); SODIUM 131 mmol/L (136-145); TOTAL PROTEIN 8.3 g/dL (6.4-8.2); TROPONIN I < 0.02 ng/mL (0-1.5); eGFR NON BLACK RACES 45 (>60)
[2021-02-09 10:08] LABS: APPEARANCE,URINE CLOUDY (CLEAR); BACTERIA,URINE 2+ /HPF (NEGATIVE); COLOR,URINE ORANGE (YELLOW); SQUAMOUS EPITHELIAL CELL,UR FEW /HPF (NEGATIVE)
[2021-02-09] MEDS ORDERED: NS 1000 ML 1,000 ML IV ONE ×2 (10:23→12:22)
[2021-02-09] MEDS ORDERED: LEVAQUIN PREMIX IV 750 MG 750 MG/150 ML BAG IV ONE ×2 (10:24→10:37)
[2021-02-09] MEDS ORDERED: LEVAQUIN PREMIX IV 750 MG 750 MG/150 ML BAG IV STA (10:25)
[2021-02-09] MEDS ORDERED: NS 100 ML IV 100 ML IV ONE (10:34)
--- NOTE | 2021-02-09 11:35 | CT ---
HISTORYLEFT FLANK PAIN, RLQ PAIN, HX OF RENAL STONESSTUDYABDOMEN/PELVIS W W/O CONCOMPARISONNone.TECHNIQUEMultiple axial images of the abdomen and pelvis were obtained from the lung bases to the pubic symphysis before and after the administration of IV contrast. Dose reduction techniques including Automated Exposure Control (AEC) and adjustment of mA and kV were utilized.FINDINGSLung bases demonstrate minimal scattered sub segmental atelectasis The heart is normal in size. Coronary artery calcification of the LAD. There is diffuse hepatic steatosis. Status post cholecystectomy. The spleen and pancreas appear benign. There are subcentimeter bilateral adrenal nodules that measure up to 1.1 cm on the left and have Hounsfield units less than 10 consistent with a lipid rich adenomas. Left lower pole renal calculi measuring up to 6 mm. No hydronephrosis.There is a heterogeneous enhancing cystic appearing lesion with internal gas at the left superior aspect of the urinary bladder with surrounding fat stranding. See image 87 series 7. The lesion measures approximately 5.3 x 5.1 cm axial and approximately 3.7 cm craniocaudal. See image 29 series 11 for craniocaudal dimension. There is a tract extending from the lesion to the sigmoid colon which can be seen on image 32 series 11 through image 29 series 11. Colonic diverticulosis. The wall of the sigmoid colon superior to the lesion measures approximately 11 mm on image 75 series 7 which is thickened.The appendix appears normal. Negative for bowel obstruction. Moderately atherosclerotic normal caliber abdominal aorta. No free air or significant free fluid. No pathologic adenopathy. No acute osseous abnormality.IMPRESSIONHeterogeneously enhancing cystic lesion with internal gas along the superior margin of the urinary bladder with a tract extending to the sigmoid colon. This may represent an abscess from perforated sigmoid diverticulitis or perforated colonic neoplasm. The sigmoid colon wall is thickened. The lesion is located along the superior wall of the urinary bladder and therefore perforated urinary bladder neoplasm is not excluded. Consider surgical consultation with injection of contrast either into the bladder or into the colon to see if the contrast extravasates into the lesion.Left subcentimeter nephrolithiasis. No hydronephrosis.Electronically signed by: Willie Self (February 09, 2021 11:34:10)
[2021-02-09] MEDS ORDERED: FLAGYL IV PREMIX 500 MG BAG 500 MG/100 ML BAG IV ONE ×2 (11:55→12:23)
[2021-02-09] MEDS ORDERED: ZOFRAN INJ 4 MG VIAL IVP PRN (15:49)
[2021-02-09] MEDS: NS 1000 ML 1,000 ML IV SCH ×2 (16:02→22:10)
[2021-02-09] MEDS: FLAGYL IV PREMIX 500 MG BAG 500 MG/100 ML BAG IV SCH ×2 (19:06→21:18)
[2021-02-09] MEDS: PROTONIX INJ 40 MG VIAL IVP SCH (21:18)
[2021-02-09] MEDS: MORPHINE SULFATE INJ 4 MG IVP PRN (21:22)
[2021-02-10] MEDS: FLAGYL IV PREMIX 500 MG BAG 500 MG/100 ML BAG IV SCH ×4 (02:25→20:27)
[2021-02-10] MEDS: NS 1000 ML 1,000 ML IV SCH ×5 (02:25→23:10)
[2021-02-10] MEDS: PROTONIX INJ 40 MG VIAL IVP SCH ×2 (09:04→20:30)
[2021-02-10 09:57] LABS: BASOPHILS # (AUTO) 0.2 X10^3/uL (0.0-0.1); BASOPHILS % (AUTO) 1.1 % (0.2-1.0); EOSINOPHILS # (AUTO) 0.1 x10^3/uL (0.0-0.2); EOSINOPHILS % (AUTO) 0.6 % (0.9-2.9); HEMOGLOBIN 13.1 g/dL (13.5-18.0); LYMPHOCYTES # (AUTO) 2.3 X10^3/uL (1.3-2.9); MEAN CORPUSCULAR HEMOGLOBIN 29.7 pg (27.0-34.0); MEAN CORPUSCULAR HGB CONC 33.5 g/dL (33.0-35.0); MEAN CORPUSCULAR VOLUME 88.4 fL (80.0-100.0); MEAN PLATELET VOLUME 6.9 fL (7.4-11.0); MONOCYTES # (AUTO) 0.9 x10^3/uL (0.3-0.8); MONOCYTES % (AUTO) 5.5 % (0.0-13.0); NEUTROPHILS # (AUTO) 12.1 x10^3/uL (2.2-4.8); NEUTROPHILS % (AUTO) 77.8 % (42.0-75.0); PLATELET COUNT 563 X10^3/uL (150.0-450.0); RED BLOOD COUNT 4.41 X10^6/uL (4.7-6.0); RED CELL DISTRIBUTION WIDTH 13.4 % (11.6-16.5); WHITE BLOOD COUNT 15.5 X10^3/uL (3.6-10.0)
[2021-02-10 10:05] LABS: ALANINE AMINOTRANSFERASE 16 Units/L (12-78); ALBUMIN 2.3 g/dL (3.4-5.0); ALKALINE PHOSPHATASE 95 Units/L (46-116); ASPARTATE AMINO TRANSFERASE 17 Units/L (15-37); BLOOD UREA NITROGEN 10 mg/dL (7-18); CALCIUM 8.6 mg/dL (8.5-10.1); CHLORIDE 101 mmol/L (98-107); CREATININE 1.14 mg/dL (0.70-1.30); TOTAL PROTEIN 7.6 g/dL (6.4-8.2); eGFR NON BLACK RACES > 60 (>60)
[2021-02-10 10:09] LABS: LACTIC ACID 2.1 mmol/L (0.4-2.0)
[2021-02-10 10:13] LABS: COR NA(FOR HYPERGLY) 137 mmol/L (136-145); SODIUM 135 mmol/L (136-145)
--- NOTE | 2021-02-10 11:32 | PCM.PROG ---
Progress Note Progress Note for Day of Date of Exam: 02/10/21 Subjective Subjective: Patient seen at bedside, no overnight events. He states he feels slightly better. Denies N/V/D. He did have some lower abdominal pain which has improved. He presented yesterday with urinary sx and severe abdominal pain. Patient though he had a kidney stone, reports hx of renal stones. 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 Patient was seen by Dr. Bal in the ED. Labs: WBC 15.5 Hgb 13.1 BUn/Cr 10/.14 Lactic acid 2.1 UA: suggestive of infection CXR: no acute process Plan: continue NPO and pain control. Follow Dr. Bal's recommendations. Continue gentle hydration with NS. Continue levaquin and flagyl. Continue anti-emetics. Follow urine culture. Monitor AM labs and imaging. Past Medical Family Social History Past Med/Fam/Surg Hx: No changes since H&P Allergies: Allergies No Known Drug Allergies Allergy (Verified 02/09/21 12:07) Review of Systems ROS: No change since H&P Vital Signs and I&O's Vital Signs: Temperature 99.2 F Pulse Rate [Left Radial] 80 Pulse Rate 86 Respiratory Rate 18 Blood Pressure [Right Arm] 106/58 Blood Pressure [Left Arm] 134/75 Blood Pressure 128/77 O2 Sat by Pulse Oximetry 93 Intake and Output: Intake & Output 02/07/21 02/08/21 02/09/21 02/10/21 23:59 23:59 23:59 23:59 Intake Total 255 / 255 742 / 742 Output Total 0 / 0 Balance 255 / 255 742 / 742 Physical Exam Oriented: Normal Eyes: Normal Ear: Normal Nose: Normal Throat: Normal Respiratory: Normal Cardiovascular: Normal Auscultation: Bowel Sounds: Decreased Tenderness: Suprapubic and Mild Skin: Normal Musculoskeletal: Normal Psychiatric: Normal Mood Description: Calm Affect: Normal Speech Pattern: Clear and Appropriate Laboratory and Diagnostics Result Diagrams: 02/10/21 09:46 02/10/21 09:46 Labs: 02/09/21 09:25 Urine,Clean Catch Urine Culture - Preliminary Laboratory WBC 15.5 X10^3/uL (3.6-10.0) H 02/10/21 09:46 RBC 4.41 X10^6/uL (4.7-6.0) L 02/10/21 09:46 Hgb 13.1 g/dL (13.5-18.0) L 02/10/21 09:46 Hct 39.0 % (42.0-54.0) L 02/10/21 09:46 MCV 88.4 fL (80.0-100.0) 02/10/21 09:46 MCH 29.7 pg (27.0-34.0) 02/10/21 09:46 MCHC 33.5 g/dL (33.0-35.0) 02/10/21 09:46 RDW 13.4 % (11.6-16.5) 02/10/21 09:46 Plt Count 563 X10^3/uL (150.0-450.0) H 02/10/21 09:46 MPV 6.9 fL (7.4-11.0) L 02/10/21 09:46 Neut % (Auto) 77.8 % (42.0-75.0) H 02/10/21 09:46 Lymph % (Auto) 15.0 % (21.0-51.0) L 02/10/21 09:46 [place] % (Auto) 5.5 % (0.0-13.0) 02/10/21 09:46 Eos % (Auto) 0.6 % (0.9-2.9) L 02/10/21 09:46 Baso % (Auto) 1.1 % (0.2-1.0) H 02/10/21 09:46 Neut # (Auto) 12.1 x10^3/uL (2.2-4.8) H 02/10/21 09:46 Lymph # (Auto) 2.3 X10^3/uL (1.3-2.9) 02/10/21 09:46 [place] # (Auto) 0.9 x10^3/uL (0.3-0.8) H 02/10/21 09:46 Eos # (Auto) 0.1 x10^3/uL (0.0-0.2) 02/10/21 09:46 Baso # (Auto) 0.2 X10^3/uL (0.0-0.1) H 02/10/21 09:46 Absolute Nucleated RBC 0.0 /100WBC 02/10/21 09:46 PT 14.8 SECONDS (11.8-14.3) 02/09/21 09:31 INR Target Range - 02/09/21 09:31 INR 1.22 (0.8-1.3) 02/09/21 09:31 Sodium 135 mmol/L (136-145) L 02/10/21 09:46 Corrected Sodium 137 mmol/L (136-145) 02/10/21 09:46 Potassium 4.1 mmol/L (3.5-5.1) 02/10/21 09:46 Chloride 101 mmol/L (98-107) 02/10/21 09:46 Carbon Dioxide 22.0 mmol/L (21-32) 02/10/21 09:46 BUN 10 mg/dL (7-18) 02/10/21 09:46 Creatinine 1.14 mg/dL (0.70-1.30) 02/10/21 09:46 Est GFR (MDRD) Af Amer > 60 (>60) 02/10/21 09:46 Est GFR (MDRD) Non-Af > 60 (>60) 02/10/21 09:46 Glucose 198 mg/dL (65-99) H 02/10/21 09:46 POC Glucose (mg/dL) 147 mg/dL (65-99) H 02/10/21 05:23 Lactic Acid 2.1 mmol/L (0.4-2.0) H 02/10/21 09:46 Calcium 8.6 mg/dL (8.5-10.1) 02/10/21 09:46 Corrected Calcium 10.0 mg/dL (8.5-10.1) 02/10/21 09:46 Total Bilirubin 0.50 mg/dL (0.2-1.0) 02/10/21 09:46 AST 17 Units/L (15-37) 02/10/21 09:46 ALT 16 Units/L (12-78) 02/10/21 09:46 Alkaline Phosphatase 95 Units/L (46-116) 02/10/21 09:46 Troponin I < 0.02 ng/mL (0-1.5) 02/09/21 09:31 Total Protein 7.6 g/dL (6.4-8.2) 02/10/21 09:46 Albumin 2.3 g/dL (3.4-5.0) L 02/10/21 09:46 Globulin 5.3 g/dL (2.5-4.5) H 02/10/21 09:46 Albumin/Globulin Ratio 0.4 Ratio (1.1-2.1) L 02/10/21 09:46 Amylase 20 Units/L (25-115) L 02/09/21 09:31 Lipase 90 Units/L (73-393) 02/09/21 09:31 Specimen Type Clean catch urine 02/09/21 09:25 Urine Color [place] (YELLOW) 02/09/21 09:25 Urine Appearance Cloudy (CLEAR) 02/09/21 09:25 Urine pH Cancelled 02/09/21 09:25 Ur Specific [place] Cancelled 02/09/21 09:25 Urine Protein Cancelled 02/09/21 09:25 Urine Glucose (UA) Cancelled 02/09/21 09:25 Urine Ketones Cancelled 02/09/21 09:25 Urine Occult Blood Cancelled 02/09/21 09:25 Urine Nitrite Cancelled 02/09/21 09:25 Urine Bilirubin Cancelled 02/09/21 09:25 Urine Urobilinogen Cancelled 02/09/21 09:25 Ur Leukocyte Esterase Cancelled 02/09/21 09:25 Urine RBC 10-20 /HPF (0-3) A 02/09/21 09:25 Urine WBC Tntc /HPF (0-5) A 02/09/21 09:25 Ur Squamous Epith Cells Few /HPF (NEGATIVE) 02/09/21 09:25 Urine Bacteria 2+ /HPF (NEGATIVE) 02/09/21 09:25 Ur Culture Indicated? Yes/culture set up 02/09/21 09:25 Acetone, Semi-Quant Negative (NEGATIVE) 02/09/21 09:31 SARS CoV-2 RNA Rapid ADE Negative (NEGATIVE) 02/09/21 12:08 Plan (1) Diverticulitis of sigmoid colon: Status: Acute (2) Bladder fistula: Status: Acute (3) Urinary tract infection: Status: Acute Qualifiers: Hematuria presence: with hematuria Urinary tract infection type: acute cystitis Qualified Code(s): N30.01 - Acute cystitis with hematuria
--- NOTE | 2021-02-10 13:19 | DR.PROGNOT ---
Hospital Progress Notes - Progress Note for Day of: Progress Note Date: 02/10/21 - Chief Complaint Chief Complaint: still having lower abdominal pain and disuria . no chills or fever .. WBC still high 15.5. normal BUN/Creatinin . - Past Medical Family Social History Past Med/Fam/Surg Hx: No changes since H&P Allergies: Allergies No Known Drug Allergies Allergy (Verified 02/09/21 12:07) - Review Of Systems ROS: No change since H&P - Vital Signs Vital Signs: Temperature 97.9 F Pulse Rate [Left Radial] 82 Pulse Rate 86 Respiratory Rate 20 Blood Pressure [Right Arm] 145/72 Blood Pressure [Left Arm] 134/75 Blood Pressure 128/77 O2 Sat by Pulse Oximetry 96 - Physical Exam Oriented: Normal Eyes: Normal Ear: Normal Nose: Normal Throat: Normal Respiratory: Normal Cardiovascular: Normal GI:Auscultation: Normal GI:Palpation: Other (soft,obese abdomen with LLQ and suprapubic tenderness and mild rebound tenderness BS+) GI: Tenderness: Suprapubic, Mild Skin: Normal Musculoskeletal: Normal Psychiatric: Normal Mood Description: Calm Affect: Normal Speech Pattern: Clear, Appropriate - Laboratory and Diagnostics Result Diagrams: 02/10/21 09:46 02/10/21 09:46 Labs: 02/09/21 09:25 Urine,Clean Catch Urine Culture - Preliminary Laboratory WBC 15.5 X10^3/uL (3.6-10.0) H 02/10/21 09:46 RBC 4.41 X10^6/uL (4.7-6.0) L 02/10/21 09:46 Hgb 13.1 g/dL (13.5-18.0) L 02/10/21 09:46 Hct 39.0 % (42.0-54.0) L 02/10/21 09:46 MCV 88.4 fL (80.0-100.0) 02/10/21 09:46 MCH 29.7 pg (27.0-34.0) 02/10/21 09:46 MCHC 33.5 g/dL (33.0-35.0) 02/10/21 09:46 RDW 13.4 % (11.6-16.5) 02/10/21 09:46 Plt Count 563 X10^3/uL (150.0-450.0) H 02/10/21 09:46 MPV 6.9 fL (7.4-11.0) L 02/10/21 09:46 Neut % (Auto) 77.8 % (42.0-75.0) H 02/10/21 09:46 Lymph % (Auto) 15.0 % (21.0-51.0) L 02/10/21 09:46 [place] % (Auto) 5.5 % (0.0-13.0) 02/10/21 09:46 Eos % (Auto) 0.6 % (0.9-2.9) L 02/10/21 09:46 Baso % (Auto) 1.1 % (0.2-1.0) H 02/10/21 09:46 Neut # (Auto) 12.1 x10^3/uL (2.2-4.8) H 02/10/21 09:46 Lymph # (Auto) 2.3 X10^3/uL (1.3-2.9) 02/10/21 09:46 [place] # (Auto) 0.9 x10^3/uL (0.3-0.8) H 02/10/21 09:46 Eos # (Auto) 0.1 x10^3/uL (0.0-0.2) 02/10/21 09:46 Baso # (Auto) 0.2 X10^3/uL (0.0-0.1) H 02/10/21 09:46 Absolute Nucleated RBC 0.0 /100WBC 02/10/21 09:46 PT 14.8 SECONDS (11.8-14.3) 02/09/21 09:31 INR Target Range - 02/09/21 09:31 INR 1.22 (0.8-1.3) 02/09/21 09:31 Sodium 135 mmol/L (136-145) L 02/10/21 09:46 Corrected Sodium 137 mmol/L (136-145) 02/10/21 09:46 Potassium 4.1 mmol/L (3.5-5.1) 02/10/21 09:46 Chloride 101 mmol/L (98-107) 02/10/21 09:46 Carbon Dioxide 22.0 mmol/L (21-32) 02/10/21 09:46 BUN 10 mg/dL (7-18) 02/10/21 09:46 Creatinine 1.14 mg/dL (0.70-1.30) 02/10/21 09:46 Est GFR (MDRD) Af Amer > 60 (>60) 02/10/21 09:46 Est GFR (MDRD) Non-Af > 60 (>60) 02/10/21 09:46 Glucose 198 mg/dL (65-99) H 02/10/21 09:46 POC Glucose (mg/dL) 145 mg/dL (65-99) H 02/10/21 11:31 Lactic Acid 2.1 mmol/L (0.4-2.0) H 02/10/21 09:46 Calcium 8.6 mg/dL (8.5-10.1) 02/10/21 09:46 Corrected Calcium 10.0 mg/dL (8.5-10.1) 02/10/21 09:46 Total Bilirubin 0.50 mg/dL (0.2-1.0) 02/10/21 09:46 AST 17 Units/L (15-37) 02/10/21 09:46 ALT 16 Units/L (12-78) 02/10/21 09:46 Alkaline Phosphatase 95 Units/L (46-116) 02/10/21 09:46 Troponin I < 0.02 ng/mL (0-1.5) 02/09/21 09:31 Total Protein 7.6 g/dL (6.4-8.2) 02/10/21 09:46 Albumin 2.3 g/dL (3.4-5.0) L 02/10/21 09:46 Globulin 5.3 g/dL (2.5-4.5) H 02/10/21 09:46 Albumin/Globulin Ratio 0.4 Ratio (1.1-2.1) L 02/10/21 09:46 Amylase 20 Units/L (25-115) L 02/09/21 09:31 Lipase 90 Units/L (73-393) 02/09/21 09:31 Specimen Type Clean catch urine 02/09/21 09:25 Urine Color [place] (YELLOW) 02/09/21 09:25 Urine Appearance Cloudy (CLEAR) 02/09/21 09:25 Urine pH Cancelled 02/09/21 09:25 Ur Specific [place] Cancelled 02/09/21 09:25 Urine Protein Cancelled 02/09/21 09:25 Urine Glucose (UA) Cancelled 02/09/21 09:25 Urine Ketones Cancelled 02/09/21 09:25 Urine Occult Blood Cancelled 02/09/21 09:25 Urine Nitrite Cancelled 02/09/21 09:25 Urine Bilirubin Cancelled 02/09/21 09:25 Urine Urobilinogen Cancelled 02/09/21 09:25 Ur Leukocyte Esterase Cancelled 02/09/21 09:25 Urine RBC 10-20 /HPF (0-3) A 02/09/21 09:25 Urine WBC Tntc /HPF (0-5) A 02/09/21 09:25 Ur Squamous Epith Cells Few /HPF (NEGATIVE) 02/09/21 09:25 Urine Bacteria 2+ /HPF (NEGATIVE) 02/09/21 09:25 Ur Culture Indicated? Yes/culture set up 02/09/21 09:25 Acetone, Semi-Quant Negative (NEGATIVE) 02/09/21 09:31 SARS CoV-2 RNA Rapid ADE Negative (NEGATIVE) 02/09/21 12:08 - Assessment and Plan 1: colovesical fistula . UTI . recurrent diverticulitis possible small pelvic abscess . obesity . DM . same IV ATB . only clear liquid and bowel rest for now .. - Problem Patient Problems: Patient Problems Diverticulitis of sigmoid colon (Acute) K57.32 Bladder fistula (Acute) N32.2 Urinary tract infection (Acute) N39.0
--- NOTE | 2021-02-10 13:20 | RAD ---
HISTORYInfection, bladder mass versus fistulaSTUDYKUBCOMPARISONCT abdomen 02/09/2021FINDINGSThe submitted frontal view of the abdomen is markedly underpenetrated, technically. There is no definite visualization of abdominal visceral, or intestinal gas pattern.IMPRESSIONTechnically nondiagnostic KUB. A repeat exam is recommended.Electronically signed by: IVAN ANDREWS (February 10, 2021 13:18:54)
[2021-02-10 15:44] LABS: BILIRUBIN,URINE NEGATIVE (NEGATIVE); BLOOD/HEMOGLOBIN,URINE 4+ (NEGATIVE); GLUCOSE, URINE NEGATIVE (NEGATIVE); KETONES,URINE 3+ (NEGATIVE); LEUKOCYTE ESTERASE ,URINE 3+ (NEGATIVE); NITRITES,URINE NEGATIVE (NEGATIVE); PH,URINE 6.5 (5.0 - 8.0); PROTEIN,URINE 1+ (NEGATIVE); UROBILINOGEN,URINE NORMAL (NORMAL)
[2021-02-10 15:45] LABS: APPEARANCE,URINE HAZY (CLEAR); COLOR,URINE YELLOW (YELLOW)
[2021-02-10] MEDS: MORPHINE SULFATE INJ 4 MG IVP PRN (15:50)
[2021-02-10 15:55] LABS: BACTERIA,URINE 2+ /HPF (NEGATIVE); RBC,URINE TNTC /HPF (0-3); SQUAMOUS EPITHELIAL CELL,UR FEW /HPF (NEGATIVE)
[2021-02-11] MEDS: FLAGYL IV PREMIX 500 MG BAG 500 MG/100 ML BAG IV SCH ×4 (03:12→20:18)
[2021-02-11] MEDS: NS 1000 ML 1,000 ML IV SCH ×4 (06:15→22:45)
[2021-02-11 06:31] LABS: BASOPHILS # (AUTO) 0.1 X10^3/uL (0.0-0.1); BASOPHILS % (AUTO) 0.9 % (0.2-1.0); EOSINOPHILS # (AUTO) 0.1 x10^3/uL (0.0-0.2); EOSINOPHILS % (AUTO) 1.5 % (0.9-2.9); HEMATOCRIT 35.7 % (42.0-54.0); HEMOGLOBIN 12.1 g/dL (13.5-18.0); LYMPHOCYTES # (AUTO) 1.8 X10^3/uL (1.3-2.9); LYMPHOCYTES % (AUTO) 18.2 % (21.0-51.0); MEAN CORPUSCULAR HEMOGLOBIN 29.6 pg (27.0-34.0); MEAN CORPUSCULAR VOLUME 87.1 fL (80.0-100.0); MONOCYTES # (AUTO) 0.7 x10^3/uL (0.3-0.8); MONOCYTES % (AUTO) 7.6 % (0.0-13.0); NEUTROPHILS # (AUTO) 6.9 x10^3/uL (2.2-4.8); NEUTROPHILS % (AUTO) 71.8 % (42.0-75.0); PLATELET COUNT 550 X10^3/uL (150.0-450.0); RED BLOOD COUNT 4.09 X10^6/uL (4.7-6.0); RED CELL DISTRIBUTION WIDTH 13.6 % (11.6-16.5); WHITE BLOOD COUNT 9.7 X10^3/uL (3.6-10.0)
[2021-02-11 06:42] LABS: ALANINE AMINOTRANSFERASE 18 Units/L (12-78); ALKALINE PHOSPHATASE 76 Units/L (46-116); ASPARTATE AMINO TRANSFERASE 17 Units/L (15-37); BLOOD UREA NITROGEN 9 mg/dL (7-18); CALCIUM 8.4 mg/dL (8.5-10.1); CARBON DIOXIDE 26.3 mmol/L (21-32); CHLORIDE 104 mmol/L (98-107); COR NA(FOR HYPERGLY) 140 mmol/L (136-145); CREATININE 0.97 mg/dL (0.70-1.30); SODIUM 139 mmol/L (136-145); TOTAL PROTEIN 6.6 g/dL (6.4-8.2); eGFR NON BLACK RACES > 60 (>60)
[2021-02-11] MEDS: LOVENOX INJ 40 MG SYR SC SCH (08:27)
[2021-02-11] MEDS: PROTONIX INJ 40 MG VIAL IVP SCH ×2 (08:27→20:09)
[2021-02-11] MEDS ORDERED: LEVAQUIN PREMIX IV 750 MG 750 MG/150 ML BAG IV SCH (09:00)
[2021-02-11] MEDS: ROCEPHIN VIAL 1 GRAM 1 G in NS 100 ML IV + SPIKE MINIBAG* 100 ML IV SCH (10:26)
--- NOTE | 2021-02-11 10:49 | PCM.PROG ---
Progress Note Progress Note for Day of Date of Exam: 02/11/21 Subjective Subjective: Patient seen at bedside, no acute events overnight. He states he is feeling better. He states his abdominal pain has resolved. Denies N/V. He did have 2 loose BMs today. He has been drinking water. Labs: WBC 9.7 Hgb 12.1 BUn/Cr 9/0.97 Lactic acid 1.0 UA: E.coli CXR: no acute process Plan: Follow surgery recommendations, continue with water for now. Will switch Levaquin to Rocephin. Continue Flagyl. Continue gentle hydration. Continue pain control. Monitor AM labs and imaging. Past Medical Family Social History Past Med/Fam/Surg Hx: No changes since H&P Allergies: Allergies No Known Drug Allergies Allergy (Verified 02/09/21 12:07) Review of Systems ROS: No change since H&P Vital Signs and I&O's Vital Signs: Temperature 97.5 F Pulse Rate [Left Radial] 74 Pulse Rate 86 Respiratory Rate 21 Blood Pressure [Right Arm] 141/64 Blood Pressure [Left Arm] 151/86 Blood Pressure 128/77 O2 Sat by Pulse Oximetry 95 Intake and Output: Intake & Output 02/08/21 02/09/21 02/10/21 02/11/21 23:59 23:59 23:59 23:59 Intake Total 255 / 255 2675 / 2675 768 / 768 Output Total 0 / 0 Balance 255 / 255 2675 / 2675 768 / 768 Physical Exam Oriented: Normal Eyes: Normal Ear: Normal Nose: Normal Throat: Normal Respiratory: Normal Cardiovascular: Normal Auscultation: Bowel Sounds: Decreased Tenderness: Normal and Other (mild distension ) Skin: Normal Musculoskeletal: Normal Psychiatric: Normal Mood Description: Calm Affect: Normal Speech Pattern: Clear and Appropriate Laboratory and Diagnostics Result Diagrams: 02/11/21 05:23 02/11/21 05:23 Labs: 02/10/21 15:35 Urine,Clean Catch Urine Culture - Preliminary 02/09/21 09:25 Urine,Clean Catch Urine Culture - Preliminary Escherichia Coli Laboratory WBC 9.7 X10^3/uL (3.6-10.0) 02/11/21 05:23 RBC 4.09 X10^6/uL (4.7-6.0) L 02/11/21 05:23 Hgb 12.1 g/dL (13.5-18.0) L 02/11/21 05:23 Hct 35.7 % (42.0-54.0) L 02/11/21 05:23 MCV 87.1 fL (80.0-100.0) 02/11/21 05:23 MCH 29.6 pg (27.0-34.0) 02/11/21 05:23 MCHC 34.0 g/dL (33.0-35.0) 02/11/21 05:23 RDW 13.6 % (11.6-16.5) 02/11/21 05:23 Plt Count 550 X10^3/uL (150.0-450.0) H 02/11/21 05:23 MPV 7.0 fL (7.4-11.0) L 02/11/21 05:23 Neut % (Auto) 71.8 % (42.0-75.0) 02/11/21 05:23 Lymph % (Auto) 18.2 % (21.0-51.0) L 02/11/21 05:23 [place] % (Auto) 7.6 % (0.0-13.0) 02/11/21 05:23 Eos % (Auto) 1.5 % (0.9-2.9) 02/11/21 05:23 Baso % (Auto) 0.9 % (0.2-1.0) 02/11/21 05:23 Neut # (Auto) 6.9 x10^3/uL (2.2-4.8) H 02/11/21 05:23 Lymph # (Auto) 1.8 X10^3/uL (1.3-2.9) 02/11/21 05:23 [place] # (Auto) 0.7 x10^3/uL (0.3-0.8) 02/11/21 05:23 Eos # (Auto) 0.1 x10^3/uL (0.0-0.2) 02/11/21 05:23 Baso # (Auto) 0.1 X10^3/uL (0.0-0.1) 02/11/21 05:23 Absolute Nucleated RBC 0.0 /100WBC 02/11/21 05:23 PT 14.8 SECONDS (11.8-14.3) 02/09/21 09:31 INR Target Range - 02/09/21 09:31 INR 1.22 (0.8-1.3) 02/09/21 09:31 Sodium 139 mmol/L (136-145) 02/11/21 05:23 Corrected Sodium 140 mmol/L (136-145) 02/11/21 05:23 Potassium 3.6 mmol/L (3.5-5.1) 02/11/21 05:23 Chloride 104 mmol/L (98-107) 02/11/21 05:23 Carbon Dioxide 26.3 mmol/L (21-32) 02/11/21 05:23 BUN 9 mg/dL (7-18) 02/11/21 05:23 Creatinine 0.97 mg/dL (0.70-1.30) 02/11/21 05:23 Est GFR (MDRD) Af Amer > 60 (>60) 02/11/21 05:23 Est GFR (MDRD) Non-Af > 60 (>60) 02/11/21 05:23 Glucose 153 mg/dL (65-99) H 02/11/21 05:23 POC Glucose (mg/dL) 118 mg/dL (65-99) H 02/11/21 05:24 Lactic Acid 1.0 mmol/L (0.4-2.0) 02/11/21 05:23 Calcium 8.4 mg/dL (8.5-10.1) L 02/11/21 05:23 Corrected Calcium 10.0 mg/dL (8.5-10.1) 02/11/21 05:23 Total Bilirubin 0.40 mg/dL (0.2-1.0) 02/11/21 05:23 AST 17 Units/L (15-37) 02/11/21 05:23 ALT 18 Units/L (12-78) 02/11/21 05:23 Alkaline Phosphatase 76 Units/L (46-116) 02/11/21 05:23 Troponin I < 0.02 ng/mL (0-1.5) 02/09/21 09:31 Total Protein 6.6 g/dL (6.4-8.2) 02/11/21 05:23 Albumin 2.0 g/dL (3.4-5.0) L 02/11/21 05:23 Globulin 4.6 g/dL (2.5-4.5) H 02/11/21 05:23 Albumin/Globulin Ratio 0.4 Ratio (1.1-2.1) L 02/11/21 05:23 Amylase 20 Units/L (25-115) L 02/09/21 09:31 Lipase 90 Units/L (73-393) 02/09/21 09:31 Specimen Type Clean catch urine 02/10/21 15:35 Urine Color Yellow (YELLOW) 02/10/21 15:35 Urine Appearance Hazy (CLEAR) 02/10/21 15:35 Urine pH 6.5 (5.0 - 8.0) 02/10/21 15:35 Ur Specific [place] 1.010 (1.000-1.030) 02/10/21 15:35 Urine Protein 1+ (NEGATIVE) 02/10/21 15:35 Urine Glucose (UA) Negative (NEGATIVE) 02/10/21 15:35 Urine Ketones 3+ (NEGATIVE) 02/10/21 15:35 Urine Occult Blood 4+ (NEGATIVE) 02/10/21 15:35 Urine Nitrite Negative (NEGATIVE) 02/10/21 15:35 Urine Bilirubin Negative (NEGATIVE) 02/10/21 15:35 Urine Urobilinogen Normal (NORMAL) 02/10/21 15:35 Ur Leukocyte Esterase 3+ (NEGATIVE) 02/10/21 15:35 Urine RBC Tntc /HPF (0-3) A 02/10/21 15:35 Urine WBC Tntc /HPF (0-5) A 02/10/21 15:35 Ur Squamous Epith Cells Few /HPF (NEGATIVE) 02/10/21 15:35 Urine Bacteria 2+ /HPF (NEGATIVE) 02/10/21 15:35 Ur Culture Indicated? Yes/culture set up 02/10/21 15:35 Acetone, Semi-Quant Negative (NEGATIVE) 02/09/21 09:31 SARS CoV-2 RNA Rapid ADE Negative (NEGATIVE) 02/09/21 12:08 Plan (1) Diverticulitis of sigmoid colon: Status: Acute (2) Bladder fistula: Status: Acute (3) Urinary tract infection: Status: Acute Qualifiers: Hematuria presence: with hematuria Urinary tract infection type: acute cystitis Qualified Code(s): N30.01 - Acute cystitis with hematuria
--- NOTE | 2021-02-11 11:31 | DR.PROGNOT ---
Hospital Progress Notes - Progress Note for Day of: Progress Note Date: 02/11/21 - Chief Complaint Chief Complaint: less abdominal pain,, no fever . U/A showed E Coli. WBC 9.7. Albumin 2.o. normal renal function . normal BUN/Creatinin . - Past Medical Family Social History Past Med/Fam/Surg Hx: No changes since H&P Allergies: Allergies No Known Drug Allergies Allergy (Verified 02/09/21 12:07) - Review Of Systems ROS: No change since H&P - Vital Signs Vital Signs: Temperature 97.5 F Pulse Rate [Left Radial] 74 Pulse Rate 86 Respiratory Rate 21 Blood Pressure [Right Arm] 141/64 Blood Pressure [Left Arm] 151/86 Blood Pressure 128/77 O2 Sat by Pulse Oximetry 95 - Physical Exam Oriented: Normal Eyes: Normal Ear: Normal Nose: Normal Throat: Normal Respiratory: Normal Cardiovascular: Normal GI:Auscultation: Decreased GI:Palpation: Other (soft, flat abdomen . BS+ with mild LLQ tenderness . no rebound ) GI: Tenderness: Normal, Other (mild distension) Skin: Normal Musculoskeletal: Normal Psychiatric: Normal Mood Description: Calm Affect: Normal Speech Pattern: Clear, Appropriate - Laboratory and Diagnostics Result Diagrams: 02/11/21 05:23 02/11/21 05:23 Labs: 02/09/21 09:39 Blood Blood Culture - Preliminary 02/09/21 09:31 Blood Blood Culture - Preliminary 02/10/21 15:35 Urine,Clean Catch Urine Culture - Preliminary 02/09/21 09:25 Urine,Clean Catch Urine Culture - Preliminary Escherichia Coli Laboratory WBC 9.7 X10^3/uL (3.6-10.0) 02/11/21 05:23 RBC 4.09 X10^6/uL (4.7-6.0) L 02/11/21 05:23 Hgb 12.1 g/dL (13.5-18.0) L 02/11/21 05:23 Hct 35.7 % (42.0-54.0) L 02/11/21 05:23 MCV 87.1 fL (80.0-100.0) 02/11/21 05:23 MCH 29.6 pg (27.0-34.0) 02/11/21 05:23 MCHC 34.0 g/dL (33.0-35.0) 02/11/21 05:23 RDW 13.6 % (11.6-16.5) 02/11/21 05:23 Plt Count 550 X10^3/uL (150.0-450.0) H 02/11/21 05:23 MPV 7.0 fL (7.4-11.0) L 02/11/21 05:23 Neut % (Auto) 71.8 % (42.0-75.0) 02/11/21 05:23 Lymph % (Auto) 18.2 % (21.0-51.0) L 02/11/21 05:23 [place] % (Auto) 7.6 % (0.0-13.0) 02/11/21 05:23 Eos % (Auto) 1.5 % (0.9-2.9) 02/11/21 05:23 Baso % (Auto) 0.9 % (0.2-1.0) 02/11/21 05:23 Neut # (Auto) 6.9 x10^3/uL (2.2-4.8) H 02/11/21 05:23 Lymph # (Auto) 1.8 X10^3/uL (1.3-2.9) 02/11/21 05:23 [place] # (Auto) 0.7 x10^3/uL (0.3-0.8) 02/11/21 05:23 Eos # (Auto) 0.1 x10^3/uL (0.0-0.2) 02/11/21 05:23 Baso # (Auto) 0.1 X10^3/uL (0.0-0.1) 02/11/21 05:23 Absolute Nucleated RBC 0.0 /100WBC 02/11/21 05:23 PT 14.8 SECONDS (11.8-14.3) 02/09/21 09:31 INR Target Range - 02/09/21 09:31 INR 1.22 (0.8-1.3) 02/09/21 09:31 Sodium 139 mmol/L (136-145) 02/11/21 05:23 Corrected Sodium 140 mmol/L (136-145) 02/11/21 05:23 Potassium 3.6 mmol/L (3.5-5.1) 02/11/21 05:23 Chloride 104 mmol/L (98-107) 02/11/21 05:23 Carbon Dioxide 26.3 mmol/L (21-32) 02/11/21 05:23 BUN 9 mg/dL (7-18) 02/11/21 05:23 Creatinine 0.97 mg/dL (0.70-1.30) 02/11/21 05:23 Est GFR (MDRD) Af Amer > 60 (>60) 02/11/21 05:23 Est GFR (MDRD) Non-Af > 60 (>60) 02/11/21 05:23 Glucose 153 mg/dL (65-99) H 02/11/21 05:23 POC Glucose (mg/dL) 118 mg/dL (65-99) H 02/11/21 05:24 Lactic Acid 1.0 mmol/L (0.4-2.0) 02/11/21 05:23 Calcium 8.4 mg/dL (8.5-10.1) L 02/11/21 05:23 Corrected Calcium 10.0 mg/dL (8.5-10.1) 02/11/21 05:23 Total Bilirubin 0.40 mg/dL (0.2-1.0) 02/11/21 05:23 AST 17 Units/L (15-37) 02/11/21 05:23 ALT 18 Units/L (12-78) 02/11/21 05:23 Alkaline Phosphatase 76 Units/L (46-116) 02/11/21 05:23 Troponin I < 0.02 ng/mL (0-1.5) 02/09/21 09:31 Total Protein 6.6 g/dL (6.4-8.2) 02/11/21 05:23 Albumin 2.0 g/dL (3.4-5.0) L 02/11/21 05:23 Globulin 4.6 g/dL (2.5-4.5) H 02/11/21 05:23 Albumin/Globulin Ratio 0.4 Ratio (1.1-2.1) L 02/11/21 05:23 Amylase 20 Units/L (25-115) L 02/09/21 09:31 Lipase 90 Units/L (73-393) 02/09/21 09:31 Specimen Type Clean catch urine 02/10/21 15:35 Urine Color Yellow (YELLOW) 02/10/21 15:35 Urine Appearance Hazy (CLEAR) 02/10/21 15:35 Urine pH 6.5 (5.0 - 8.0) 02/10/21 15:35 Ur Specific [place] 1.010 (1.000-1.030) 02/10/21 15:35 Urine Protein 1+ (NEGATIVE) 02/10/21 15:35 Urine Glucose (UA) Negative (NEGATIVE) 02/10/21 15:35 Urine Ketones 3+ (NEGATIVE) 02/10/21 15:35 Urine Occult Blood 4+ (NEGATIVE) 02/10/21 15:35 Urine Nitrite Negative (NEGATIVE) 02/10/21 15:35 Urine Bilirubin Negative (NEGATIVE) 02/10/21 15:35 Urine Urobilinogen Normal (NORMAL) 02/10/21 15:35 Ur Leukocyte Esterase 3+ (NEGATIVE) 02/10/21 15:35 Urine RBC Tntc /HPF (0-3) A 02/10/21 15:35 Urine WBC Tntc /HPF (0-5) A 02/10/21 15:35 Ur Squamous Epith Cells Few /HPF (NEGATIVE) 02/10/21 15:35 Urine Bacteria 2+ /HPF (NEGATIVE) 02/10/21 15:35 Ur Culture Indicated? Yes/culture set up 02/10/21 15:35 Acetone, Semi-Quant Negative (NEGATIVE) 02/09/21 09:31 SARS CoV-2 RNA Rapid ADE Negative (NEGATIVE) 02/09/21 12:08 - Assessment and Plan 1: colovesical fistula . UTI positive for E Coli . recurrent diverticulitis possible small pelvic abscess . obesity . DM . full liquid diet .. - Problem Patient Problems: Patient Problems Diverticulitis of sigmoid colon (Acute) K57.32 Bladder fistula (Acute) N32.2 Urinary tract infection (Acute) N39.0
[2021-02-12] MEDS: NS 1000 ML 1,000 ML IV SCH ×3 (00:22→15:43)
[2021-02-12] MEDS: FLAGYL IV PREMIX 500 MG BAG 500 MG/100 ML BAG IV SCH ×4 (02:03→20:48)
[2021-02-12 06:03] LABS: BASOPHILS # (AUTO) 0.1 X10^3/uL (0.0-0.1); BASOPHILS % (AUTO) 1.2 % (0.2-1.0); EOSINOPHILS # (AUTO) 0.1 x10^3/uL (0.0-0.2); EOSINOPHILS % (AUTO) 1.1 % (0.9-2.9); HEMATOCRIT 37.9 % (42.0-54.0); HEMOGLOBIN 12.6 g/dL (13.5-18.0); LYMPHOCYTES # (AUTO) 2.3 X10^3/uL (1.3-2.9); LYMPHOCYTES % (AUTO) 23.8 % (21.0-51.0); MEAN CORPUSCULAR HEMOGLOBIN 29.2 pg (27.0-34.0); MEAN CORPUSCULAR HGB CONC 33.1 g/dL (33.0-35.0); MEAN CORPUSCULAR VOLUME 88.1 fL (80.0-100.0); MEAN PLATELET VOLUME 6.9 fL (7.4-11.0); MONOCYTES # (AUTO) 0.8 x10^3/uL (0.3-0.8); MONOCYTES % (AUTO) 8.5 % (0.0-13.0); NEUTROPHILS # (AUTO) 6.2 x10^3/uL (2.2-4.8); NEUTROPHILS % (AUTO) 65.4 % (42.0-75.0); PLATELET COUNT 535 X10^3/uL (150.0-450.0); RED CELL DISTRIBUTION WIDTH 13.7 % (11.6-16.5); WHITE BLOOD COUNT 9.5 X10^3/uL (3.6-10.0)
[2021-02-12 06:21] LABS: ALANINE AMINOTRANSFERASE 19 Units/L (12-78); ALBUMIN 2.1 g/dL (3.4-5.0); ALKALINE PHOSPHATASE 75 Units/L (46-116); ASPARTATE AMINO TRANSFERASE 17 Units/L (15-37); BLOOD UREA NITROGEN 7 mg/dL (7-18); CALCIUM 8.1 mg/dL (8.5-10.1); CARBON DIOXIDE 25.5 mmol/L (21-32); CHLORIDE 104 mmol/L (98-107); COR CA(FOR HYPOALB) 9.6 mg/dL (8.5-10.1); COR NA(FOR HYPERGLY) 142 mmol/L (136-145); CREATININE 0.96 mg/dL (0.70-1.30); SODIUM 140 mmol/L (136-145); TOTAL PROTEIN 6.6 g/dL (6.4-8.2); eGFR NON BLACK RACES > 60 (>60)
[2021-02-12] MEDS: PROTONIX INJ 40 MG VIAL IVP SCH ×2 (08:34→20:48)
[2021-02-12] MEDS: LOVENOX INJ 40 MG SYR SC SCH (08:36)
[2021-02-12] MEDS ORDERED: NEURONTIN CAP 300 MG PO PRN (09:37)
[2021-02-12] MEDS: ROCEPHIN VIAL 1 GRAM 1 G in NS 100 ML IV + SPIKE MINIBAG* 100 ML IV SCH (09:58)
[2021-02-12] MEDS ORDERED: GLUCOPHAGE ONE ×2 (10:11→16:11)
[2021-02-12] MEDS: GLUCOPHAGE PO SCH ×2 (10:14→16:44)
[2021-02-12] MEDS: WELCHOL PO SCH (10:15)
[2021-02-12] MEDS: LOPRESSOR TAB 50 MG PO SCH ×2 (10:15→20:48)
--- NOTE | 2021-02-12 10:50 | PCM.PROG ---
Progress Note Progress Note for Day of Date of Exam: 02/12/21 Subjective Subjective: Patient seen at bedside, no acute events overnight. He states he is doing better. Denies abdominal pain or flank pain. Denies N/V/D. He has been able to tolerate full liquid diet. Labs: WBC 9.5 Hgb 12.6 BUN/Cr 7/0.96 UA: E.coli CXR: no acute process Plan: Follow Dr. Bal's recommendations, continue full liquids for now. Continue Rocephin and Flagyl. Continue gentle hydration. Continue pain control. Resume home medications. Monitor AM labs and imaging. Past Medical Family Social History Past Med/Fam/Surg Hx: No changes since H&P Allergies: Allergies No Known Drug Allergies Allergy (Verified 02/09/21 12:07) Review of Systems ROS: No change since H&P Vital Signs and I&O's Vital Signs: Temperature 98.2 F Pulse Rate [Left Radial] 90 Pulse Rate 86 Respiratory Rate 20 Blood Pressure [Right Arm] 141/64 Blood Pressure [Left Arm] 136/67 Blood Pressure 128/77 O2 Sat by Pulse Oximetry 96 Intake and Output: Intake & Output 02/09/21 02/10/21 02/11/21 02/12/21 23:59 23:59 23:59 23:59 Intake Total 255 / 255 2675 / 2675 3703 / 3703 769 / 769 Output Total 0 / 0 Balance 255 / 255 2675 / 2675 3703 / 3703 769 / 769 Physical Exam Oriented: Normal Eyes: Normal Ear: Normal Nose: Normal Throat: Normal Respiratory: Normal Cardiovascular: Normal Auscultation: Bowel Sounds: Normal Tenderness: Normal and Other (mild distension ) Skin: Normal Musculoskeletal: Normal Psychiatric: Normal Mood Description: Calm Affect: Normal Speech Pattern: Clear and Appropriate Laboratory and Diagnostics Result Diagrams: 02/12/21 05:30 02/12/21 05:30 Labs: 02/09/21 09:25 Urine,Clean Catch Urine Culture - Preliminary Escherichia Coli 02/10/21 15:35 Urine,Clean Catch Urine Culture - Preliminary Escherichia Coli 02/09/21 09:39 Blood Blood Culture - Preliminary 02/09/21 09:31 Blood Blood Culture - Preliminary Laboratory WBC 9.5 X10^3/uL (3.6-10.0) 02/12/21 05:30 RBC 4.30 X10^6/uL (4.7-6.0) L 02/12/21 05:30 Hgb 12.6 g/dL (13.5-18.0) L 02/12/21 05:30 Hct 37.9 % (42.0-54.0) L 02/12/21 05:30 MCV 88.1 fL (80.0-100.0) 02/12/21 05:30 MCH 29.2 pg (27.0-34.0) 02/12/21 05:30 MCHC 33.1 g/dL (33.0-35.0) 02/12/21 05:30 RDW 13.7 % (11.6-16.5) 02/12/21 05:30 Plt Count 535 X10^3/uL (150.0-450.0) H 02/12/21 05:30 MPV 6.9 fL (7.4-11.0) L 02/12/21 05:30 Neut % (Auto) 65.4 % (42.0-75.0) 02/12/21 05:30 Lymph % (Auto) 23.8 % (21.0-51.0) 02/12/21 05:30 [place] % (Auto) 8.5 % (0.0-13.0) 02/12/21 05:30 Eos % (Auto) 1.1 % (0.9-2.9) 02/12/21 05:30 Baso % (Auto) 1.2 % (0.2-1.0) H 02/12/21 05:30 Neut # (Auto) 6.2 x10^3/uL (2.2-4.8) H 02/12/21 05:30 Lymph # (Auto) 2.3 X10^3/uL (1.3-2.9) 02/12/21 05:30 [place] # (Auto) 0.8 x10^3/uL (0.3-0.8) 02/12/21 05:30 Eos # (Auto) 0.1 x10^3/uL (0.0-0.2) 02/12/21 05:30 Baso # (Auto) 0.1 X10^3/uL (0.0-0.1) 02/12/21 05:30 Absolute Nucleated RBC 0.1 /100WBC 02/12/21 05:30 PT 14.8 SECONDS (11.8-14.3) 02/09/21 09:31 INR Target Range - 02/09/21 09:31 INR 1.22 (0.8-1.3) 02/09/21 09:31 Sodium 140 mmol/L (136-145) 02/12/21 05:30 Corrected Sodium 142 mmol/L (136-145) 02/12/21 05:30 Potassium 3.6 mmol/L (3.5-5.1) 02/12/21 05:30 Chloride 104 mmol/L (98-107) 02/12/21 05:30 Carbon Dioxide 25.5 mmol/L (21-32) 02/12/21 05:30 BUN 7 mg/dL (7-18) 02/12/21 05:30 Creatinine 0.96 mg/dL (0.70-1.30) 02/12/21 05:30 Est GFR (MDRD) Af Amer > 60 (>60) 02/12/21 05:30 Est GFR (MDRD) Non-Af > 60 (>60) 02/12/21 05:30 Glucose 182 mg/dL (65-99) H 02/12/21 05:30 POC Glucose (mg/dL) 161 mg/dL (65-99) H 02/12/21 05:15 Lactic Acid 1.0 mmol/L (0.4-2.0) 02/11/21 05:23 Calcium 8.1 mg/dL (8.5-10.1) L 02/12/21 05:30 Corrected Calcium 9.6 mg/dL (8.5-10.1) 02/12/21 05:30 Total Bilirubin 0.40 mg/dL (0.2-1.0) 02/12/21 05:30 AST 17 Units/L (15-37) 02/12/21 05:30 ALT 19 Units/L (12-78) 02/12/21 05:30 Alkaline Phosphatase 75 Units/L (46-116) 02/12/21 05:30 Troponin I < 0.02 ng/mL (0-1.5) 02/09/21 09:31 Total Protein 6.6 g/dL (6.4-8.2) 02/12/21 05:30 Albumin 2.1 g/dL (3.4-5.0) L 02/12/21 05:30 Globulin 4.5 g/dL (2.5-4.5) 02/12/21 05:30 Albumin/Globulin Ratio 0.5 Ratio (1.1-2.1) L 02/12/21 05:30 Amylase 20 Units/L (25-115) L 02/09/21 09:31 Lipase 90 Units/L (73-393) 02/09/21 09:31 Specimen Type Clean catch urine 02/10/21 15:35 Urine Color Yellow (YELLOW) 02/10/21 15:35 Urine Appearance Hazy (CLEAR) 02/10/21 15:35 Urine pH 6.5 (5.0 - 8.0) 02/10/21 15:35 Ur Specific [place] 1.010 (1.000-1.030) 02/10/21 15:35 Urine Protein 1+ (NEGATIVE) 02/10/21 15:35 Urine Glucose (UA) Negative (NEGATIVE) 02/10/21 15:35 Urine Ketones 3+ (NEGATIVE) 02/10/21 15:35 Urine Occult Blood 4+ (NEGATIVE) 02/10/21 15:35 Urine Nitrite Negative (NEGATIVE) 02/10/21 15:35 Urine Bilirubin Negative (NEGATIVE) 02/10/21 15:35 Urine Urobilinogen Normal (NORMAL) 02/10/21 15:35 Ur Leukocyte Esterase 3+ (NEGATIVE) 02/10/21 15:35 Urine RBC Tntc /HPF (0-3) A 02/10/21 15:35 Urine WBC Tntc /HPF (0-5) A 02/10/21 15:35 Ur Squamous Epith Cells Few /HPF (NEGATIVE) 02/10/21 15:35 Urine Bacteria 2+ /HPF (NEGATIVE) 02/10/21 15:35 Ur Culture Indicated? Yes/culture set up 02/10/21 15:35 Acetone, Semi-Quant Negative (NEGATIVE) 02/09/21 09:31 SARS CoV-2 RNA Rapid ADE Negative (NEGATIVE) 02/09/21 12:08 Plan (1) Diverticulitis of sigmoid colon: Status: Acute (2) Bladder fistula: Status: Acute (3) Urinary tract infection: Status: Acute Qualifiers: Hematuria presence: with hematuria Urinary tract infection type: acute cystitis Qualified Code(s): N30.01 - Acute cystitis with hematuria
[2021-02-12] MEDS ORDERED: SNACK - Diabetic Appropriate PO SCH (20:00)
[2021-02-12] MEDS: FLOMAX PO SCH (20:48)
[2021-02-12] MEDS ORDERED: ZOCOR TAB 20 MG PO SCH (21:00)
[2021-02-13] MEDS: NS 1000 ML 1,000 ML IV SCH ×2 (00:25→08:21)
[2021-02-13] MEDS: FLAGYL IV PREMIX 500 MG BAG 500 MG/100 ML BAG IV SCH ×2 (02:36→09:16)
[2021-02-13] MEDS ORDERED: GLUCOPHAGE ONE (05:07)
[2021-02-13] MEDS: GLUCOPHAGE PO SCH (06:01)
[2021-02-13 06:10] LABS: BASOPHILS # (AUTO) 0.1 X10^3/uL (0.0-0.1); BASOPHILS % (AUTO) 0.9 % (0.2-1.0); EOSINOPHILS # (AUTO) 0.2 x10^3/uL (0.0-0.2); EOSINOPHILS % (AUTO) 1.8 % (0.9-2.9); HEMATOCRIT 36.1 % (42.0-54.0); HEMOGLOBIN 12.2 g/dL (13.5-18.0); LYMPHOCYTES # (AUTO) 2.3 X10^3/uL (1.3-2.9); LYMPHOCYTES % (AUTO) 26.5 % (21.0-51.0); MEAN CORPUSCULAR HEMOGLOBIN 29.6 pg (27.0-34.0); MEAN CORPUSCULAR HGB CONC 33.7 g/dL (33.0-35.0); MEAN CORPUSCULAR VOLUME 87.8 fL (80.0-100.0); MEAN PLATELET VOLUME 6.9 fL (7.4-11.0); MONOCYTES # (AUTO) 0.8 x10^3/uL (0.3-0.8); NEUTROPHILS # (AUTO) 5.4 x10^3/uL (2.2-4.8); NEUTROPHILS % (AUTO) 61.8 % (42.0-75.0); PLATELET COUNT 524 X10^3/uL (150.0-450.0); RED BLOOD COUNT 4.11 X10^6/uL (4.7-6.0); RED CELL DISTRIBUTION WIDTH 13.7 % (11.6-16.5); WHITE BLOOD COUNT 8.8 X10^3/uL (3.6-10.0)
[2021-02-13 06:20] LABS: BLOOD UREA NITROGEN 6 mg/dL (7-18); CALCIUM 8.3 mg/dL (8.5-10.1); CARBON DIOXIDE 25.5 mmol/L (21-32); CHLORIDE 107 mmol/L (98-107); COR NA(FOR HYPERGLY) 143 mmol/L (136-145); CREATININE 0.92 mg/dL (0.70-1.30); SODIUM 141 mmol/L (136-145); eGFR NON BLACK RACES > 60 (>60)
[2021-02-13] MEDS: ROCEPHIN VIAL 1 GRAM 1 G in NS 100 ML IV + SPIKE MINIBAG* 100 ML IV SCH (08:28)
[2021-02-13] MEDS: PROTONIX INJ 40 MG VIAL IVP SCH (08:28)
[2021-02-13] MEDS: LOVENOX INJ 40 MG SYR SC SCH (08:29)
[2021-02-13] MEDS: FLOMAX PO SCH (08:30)
[2021-02-13] MEDS: WELCHOL PO SCH (08:30)
[2021-02-13] MEDS: LOPRESSOR TAB 50 MG PO SCH (08:30)
[2021-02-13] MEDS ORDERED: JANUVIA PO SCH (09:00)
[2021-02-13] MEDS ORDERED: NS 100 ML IV 100 ML IV ONE (11:27)
[2021-02-13 12:25] VITALS: BP 143/77
--- NOTE | 2021-02-13 13:08 | CT ---
HISTORYABD PAIN, DIVERTICULITIS FOLLOW UP.STUDYCT abdomen pelvis with IV contrastCOMPARISONCT 02/09/2021TECHNIQUEMultiple axial images of the abdomen and pelvis were obtained from the lung bases to the pubic symphysis after the administration of IV contrast. 100 cc Omnipaque 350 IV contrast. Dose reduction techniques including Automated Exposure Control (AEC) and adjustment of mA and kV were utilized.FINDINGSThe visualized portions of the lung bases are unremarkable.Likely fatty infiltration of the liver. Spleen is normal in size.Prior cholecystectomy. No biliary ductal dilation.No pancreatic abnormality is seen.The adrenal glands appear normal.Nonobstructing left renal stone. No hydronephrosis is seen bilaterally. No ureterectasis.Diverticulitis persists in the proximal sigmoid colon. The abscess adjacent to the sigmoid colon is decreased in size. It measures 3.3 x 3.7 cm compared to 5.2 x 5.1 cm previously. Two other small abscesses are suspected more posteriorly and inferiorly in the midline of the pelvis. These likely communicate with each other and may communicate with the larger abscess. They are similar in size to prior CT study.Delayed imaging in prone position is performed through the pelvis. There is filling of contrast in the urinary bladder. Possible mild wall thickening of the urinary bladder adjacent to the diverticular abscess. No evidence of communication between the bladder and abscess is seen.No abnormalities are seen of the reproductive organs.Abdominal aorta is normal in size.Small likely reactive lymph nodes are seen in the abdomen and pelvis, similar to prior study.No free intraperitoneal air is seen.No acute bony abnormality is seen. Mild disc bulge is suspected at L4-5. Moderate spondylosis is seen at L4-5 and L5-S1.IMPRESSIONDecrease in size of largest abscess associated with sigmoid colon diverticulitis. Other small abscesses in the pelvis are similar to prior study. There are likely communicating fistula between the abscesses.The largest abscess is closely associated with the superior aspect of the urinary bladder without evidence of communication. There is mild wall thickening of the superior aspect of the urinary bladder.Electronically signed by: Nam Rodriguez (Feb 13, 2021 13:06:24)
--- NOTE | 2021-02-13 13:52 | DR.PROGNOT ---
Hospital Progress Notes - Progress Note for Day of: Progress Note Date: 02/13/21 - Chief Complaint Chief Complaint: no abdominal pain,, no fever . voiding without difficulty. normal BUN/Creatinin and WBC . CT showed smaller pelvic abscess and no clear fistula . - Past Medical Family Social History Past Med/Fam/Surg Hx: No changes since H&P Allergies: Allergies No Known Drug Allergies Allergy (Verified 02/09/21 12:07) - Review Of Systems ROS: No change since H&P - Vital Signs Vital Signs: Temperature 98.3 F Pulse Rate [Left Radial] 70 Pulse Rate 86 Respiratory Rate 20 Blood Pressure [Right Arm] 143/77 Blood Pressure [Left Arm] 127/86 Blood Pressure 128/77 O2 Sat by Pulse Oximetry 96 - Physical Exam Oriented: Normal Eyes: Normal Ear: Normal Nose: Normal Throat: Normal Respiratory: Normal Cardiovascular: Normal GI:Auscultation: Normal GI:Palpation: Other (soft, flat abdomen . BS+ with mild LLQ tenderness . no rebound ) GI: Tenderness: Normal, Other (soft, flat abdomen with only mild LLQ tenderness . BS+) Skin: Normal Musculoskeletal: Normal Psychiatric: Normal Mood Description: Calm Affect: Normal Speech Pattern: Clear, Appropriate - Laboratory and Diagnostics Result Diagrams: 02/13/21 05:25 02/13/21 05:25 Labs: 02/10/21 15:35 Urine,Clean Catch Urine Culture - Final Escherichia Coli Escherichia Coli#2 02/09/21 09:25 Urine,Clean Catch Urine Culture - Final Escherichia Coli Escherichia Coli#2 02/09/21 09:39 Blood Blood Culture - Preliminary 02/09/21 09:31 Blood Blood Culture - Preliminary Laboratory WBC 8.8 X10^3/uL (3.6-10.0) 02/13/21 05:25 RBC 4.11 X10^6/uL (4.7-6.0) L 02/13/21 05:25 Hgb 12.2 g/dL (13.5-18.0) L 02/13/21 05:25 Hct 36.1 % (42.0-54.0) L 02/13/21 05:25 MCV 87.8 fL (80.0-100.0) 02/13/21 05:25 MCH 29.6 pg (27.0-34.0) 02/13/21 05:25 MCHC 33.7 g/dL (33.0-35.0) 02/13/21 05:25 RDW 13.7 % (11.6-16.5) 02/13/21 05:25 Plt Count 524 X10^3/uL (150.0-450.0) H 02/13/21 05:25 MPV 6.9 fL (7.4-11.0) L 02/13/21 05:25 Neut % (Auto) 61.8 % (42.0-75.0) 02/13/21 05:25 Lymph % (Auto) 26.5 % (21.0-51.0) 02/13/21 05:25 [place] % (Auto) 9.0 % (0.0-13.0) 02/13/21 05:25 Eos % (Auto) 1.8 % (0.9-2.9) 02/13/21 05:25 Baso % (Auto) 0.9 % (0.2-1.0) 02/13/21 05:25 Neut # (Auto) 5.4 x10^3/uL (2.2-4.8) H 02/13/21 05:25 Lymph # (Auto) 2.3 X10^3/uL (1.3-2.9) 02/13/21 05:25 [place] # (Auto) 0.8 x10^3/uL (0.3-0.8) 02/13/21 05:25 Eos # (Auto) 0.2 x10^3/uL (0.0-0.2) 02/13/21 05:25 Baso # (Auto) 0.1 X10^3/uL (0.0-0.1) 02/13/21 05:25 Absolute Nucleated RBC 0.0 /100WBC 02/13/21 05:25 PT 14.8 SECONDS (11.8-14.3) 02/09/21 09:31 INR Target Range - 02/09/21 09:31 INR 1.22 (0.8-1.3) 02/09/21 09:31 Sodium 141 mmol/L (136-145) 02/13/21 05:25 Corrected Sodium 143 mmol/L (136-145) 02/13/21 05:25 Potassium 3.5 mmol/L (3.5-5.1) 02/13/21 05:25 Chloride 107 mmol/L (98-107) 02/13/21 05:25 Carbon Dioxide 25.5 mmol/L (21-32) 02/13/21 05:25 BUN 6 mg/dL (7-18) L 02/13/21 05:25 Creatinine 0.92 mg/dL (0.70-1.30) 02/13/21 05:25 Est GFR (MDRD) Af Amer > 60 (>60) 02/13/21 05:25 Est GFR (MDRD) Non-Af > 60 (>60) 02/13/21 05:25 Glucose 191 mg/dL (65-99) H 02/13/21 05:25 POC Glucose (mg/dL) 156 mg/dL (65-99) H 02/13/21 11:36 Lactic Acid 1.0 mmol/L (0.4-2.0) 02/11/21 05:23 Calcium 8.3 mg/dL (8.5-10.1) L 02/13/21 05:25 Corrected Calcium 9.6 mg/dL (8.5-10.1) 02/12/21 05:30 Total Bilirubin 0.40 mg/dL (0.2-1.0) 02/12/21 05:30 AST 17 Units/L (15-37) 02/12/21 05:30 ALT 19 Units/L (12-78) 02/12/21 05:30 Alkaline Phosphatase 75 Units/L (46-116) 02/12/21 05:30 Troponin I < 0.02 ng/mL (0-1.5) 02/09/21 09:31 Total Protein 6.6 g/dL (6.4-8.2) 02/12/21 05:30 Albumin 2.1 g/dL (3.4-5.0) L 02/12/21 05:30 Globulin 4.5 g/dL (2.5-4.5) 02/12/21 05:30 Albumin/Globulin Ratio 0.5 Ratio (1.1-2.1) L 02/12/21 05:30 Amylase 20 Units/L (25-115) L 02/09/21 09:31 Lipase 90 Units/L (73-393) 02/09/21 09:31 Specimen Type Clean catch urine 02/10/21 15:35 Urine Color Yellow (YELLOW) 02/10/21 15:35 Urine Appearance Hazy (CLEAR) 02/10/21 15:35 Urine pH 6.5 (5.0 - 8.0) 02/10/21 15:35 Ur Specific [place] 1.010 (1.000-1.030) 02/10/21 15:35 Urine Protein 1+ (NEGATIVE) 02/10/21 15:35 Urine Glucose (UA) Negative (NEGATIVE) 02/10/21 15:35 Urine Ketones 3+ (NEGATIVE) 02/10/21 15:35 Urine Occult Blood 4+ (NEGATIVE) 02/10/21 15:35 Urine Nitrite Negative (NEGATIVE) 02/10/21 15:35 Urine Bilirubin Negative (NEGATIVE) 02/10/21 15:35 Urine Urobilinogen Normal (NORMAL) 02/10/21 15:35 Ur Leukocyte Esterase 3+ (NEGATIVE) 02/10/21 15:35 Urine RBC Tntc /HPF (0-3) A 02/10/21 15:35 Urine WBC Tntc /HPF (0-5) A 02/10/21 15:35 Ur Squamous Epith Cells Few /HPF (NEGATIVE) 02/10/21 15:35 Urine Bacteria 2+ /HPF (NEGATIVE) 02/10/21 15:35 Ur Culture Indicated? Yes/culture set up 02/10/21 15:35 Acetone, Semi-Quant Negative (NEGATIVE) 02/09/21 09:31 SARS CoV-2 RNA Rapid ADE Negative (NEGATIVE) 02/09/21 12:08 - Assessment and Plan 1: colovesical fistula . UTI positive for E Coli . recurrent diverticulitis and pelvic abscess . obesity . to discharge on Cipro and Flagyl . office f/u in one week .. - Problem Patient Problems: Patient Problems Diverticulitis of sigmoid colon (Acute) K57.32 Bladder fistula (Acute) N32.2 Urinary tract infection (Acute) N39.0
== END 2021-02-13 14:40 | disposition home or self-care (01) | DRG 392 ==
LOC: ER 08:46 → MED/SURG 13:37
PROVIDERS: ADMIT Internal Medicine; ATTEND Internal Medicine
DX: E66.09 Other obesity due to excess calories; N32.2 Vesical fistula, not elsewhere classified; N30.01 Acute cystitis with hematuria; E11.65 Type 2 diabetes mellitus with hyperglycemia; Z20.822 Contact with and (suspected) exposure to COVID-19; K57.32 Diverticulitis of large intestine without perforation or abscess without bleeding; R26.89 Other abnormalities of gait and mobility; Z87.440 Personal history of urinary (tract) infections; B96.29 Other Escherichia coli [E. coli] as the cause of diseases classified elsewhere

== ENCOUNTER 2021-06-12 08:21 | Inpatient (IN) ==
[~2021-06-12 08:21] MED LIST: DIPRIVAN VIAL ONE; KETALAR ONE; NORMODYNE INJ 100 MG VIAL ONE; OFIRMEV IV 1000 MG VIAL IV ONE; ROBINUL ONE; TORADOL 30 MG VIAL ONE; ULTANE GAS IN ONE; VERSED ONE; XYLOCAINE 2 % (PLAIN) ONE; ZOFRAN INJ 4 MG VIAL ONE
[2021-06-12] MEDS ORDERED: NS 1000 ML 1,000 ML ONE ×3 (08:32→10:34)
[2021-06-12] MEDS ORDERED: ANCEF 1 GRAM IV PREMIX* 2 G/100 ML BAG IV ONE (08:34)
[2021-06-12 09:06] VITALS: BMI 35.7
[2021-06-12] MEDS ORDERED: DECADRON INJ ONE (10:34)
[2021-06-12] MEDS ORDERED: DILAUDID INJ ONE (10:34)
[2021-06-12] MEDS ORDERED: FENTANYL VIAL INJ 100 mcg ONE (10:34)
[2021-06-12] MEDS ORDERED: BRIDION ONE (10:34)
[2021-06-12] MEDS ORDERED: PEPCID 20 MG IV PREMIX* 50 ML IV ONE (10:35)
[2021-06-12] MEDS ORDERED: ZEMURON 50 MG VIAL ONE (10:35)
[2021-06-12] MEDS ORDERED: ULTANE GAS IN ONE (10:35)
[2021-06-12] MEDS ORDERED: POLYMYXIN B SULFATE ONE (11:19)
[2021-06-12] MEDS ORDERED: LEVAQUIN PREMIX IV 500 MG 500 MG/100 ML BAG IV ONE (13:07)
[2021-06-12] MEDS ORDERED: BENADRYL INJ 50 MG VIAL IVP PRN (14:18)
[2021-06-12] MEDS ORDERED: DILAUDID INJ IVP PRN (14:18)
[2021-06-12] MEDS ORDERED: PHENERGAN INJ 25 MG IM PRN (14:18)
[2021-06-12] MEDS ORDERED: BARHEMSYS INJ IVP PRN (14:18)
[2021-06-12] MEDS: D5 1/2 NS 1000 ML 1,000 ML IV SCH (16:07)
[2021-06-12] MEDS ORDERED: NS 100 ML IV 0 ML ONE (21:07)
[2021-06-12] MEDS ORDERED: ZOSYN VIAL 3.375 GRAMS IV ONE (21:37)
[2021-06-12] MEDS ORDERED: NS 100 ML IV 100 ML ONE ×2 (21:38→21:45)
[2021-06-12] MEDS: ZOSYN VIAL 3.375 GRAMS 3.375 G in NS 100 ML IV + SPIKE MINIBAG* 100 ML IV SCH (22:10)
[2021-06-12] MEDS: DILAUDID INJ IVP PRN (23:25)
[2021-06-13] MEDS: D5 1/2 NS 1000 ML 1,000 ML IV SCH ×6 (01:10→20:20)
[2021-06-13] MEDS: DILAUDID INJ IVP PRN ×4 (04:03→20:15)
[2021-06-13] MEDS ORDERED: NS 100 ML IV 100 ML ONE (04:14)
[2021-06-13] MEDS: ZOSYN VIAL 3.375 GRAMS 3.375 G in NS 100 ML IV + SPIKE MINIBAG* 100 ML IV SCH (05:13)
--- NOTE | 2021-06-13 08:02 | DR.PROGNOT ---
Hospital Progress Notes - Progress Note for Day of: Progress Note Date: 06/13/21 - Chief Complaint Chief Complaint: doing very well . moderate incisional pain . clear urine . minimal drainage in NGT . - Past Medical Family Social History Past Med/Fam/Surg Hx: No changes since H&P Allergies: Allergies No Known Drug Allergies Allergy (Verified 02/09/21 12:07) - Review Of Systems ROS: No change since H&P - Vital Signs Vital Signs: Temperature 97.4 F Pulse Rate [Left Radial] 98 Pulse Rate 93 Respiratory Rate 18 Blood Pressure [Left Arm] 136/91 Blood Pressure [Right Arm] 149/89 Blood Pressure 108/80 O2 Sat by Pulse Oximetry 99 - Physical Exam Oriented: Normal Eyes: Normal Ear: Normal Nose: Normal Throat: Normal Respiratory: Normal Cardiovascular: Normal : Normal GI:Auscultation: Decreased GI: Tenderness: Diffuse Mood Description: Calm Speech Pattern: Clear, Appropriate - Laboratory and Diagnostics Labs: Laboratory POC Glucose (mg/dL) 156 mg/dL (65-99) H 06/12/21 11:23 Tissue Pathology To follow 06/12/21 12:35 - Assessment and Plan 1: PO laparotomy . sigmoid resection . division of colo-vesical fistula . d/c NGT .. OOB . keep NPO .
[2021-06-13] MEDS: LOVENOX INJ 40 MG SYR SC SCH (08:46)
[2021-06-13] MEDS: PROTONIX INJ 40 MG VIAL IVP SCH (08:46)
[2021-06-13 09:17] LABS: BASOPHILS % (AUTO) 0.2 % (0.2-1.0); HEMATOCRIT 38.3 % (42.0-54.0); HEMOGLOBIN 12.7 g/dL (13.5-18.0); LYMPHOCYTES # (AUTO) 1.3 X10^3/uL (1.3-2.9); LYMPHOCYTES % (AUTO) 9.8 % (21.0-51.0); MEAN CORPUSCULAR HEMOGLOBIN 30.1 pg (27.0-34.0); MEAN CORPUSCULAR HGB CONC 33.1 g/dL (33.0-35.0); MEAN CORPUSCULAR VOLUME 90.7 fL (80.0-100.0); MEAN PLATELET VOLUME 7.1 fL (7.4-11.0); MONOCYTES # (AUTO) 1.2 x10^3/uL (0.3-0.8); MONOCYTES % (AUTO) 9.1 % (0.0-13.0); NEUTROPHILS # (AUTO) 10.8 x10^3/uL (2.2-4.8); NEUTROPHILS % (AUTO) 80.9 % (42.0-75.0); PLATELET COUNT 325 X10^3/uL (150.0-450.0); RED BLOOD COUNT 4.23 X10^6/uL (4.7-6.0); RED CELL DISTRIBUTION WIDTH 13.5 % (11.6-16.5); WHITE BLOOD COUNT 13.3 X10^3/uL (3.6-10.0)
[2021-06-13 09:28] LABS: ALANINE AMINOTRANSFERASE 34 Units/L (12-78); ALBUMIN 2.5 g/dL (3.4-5.0); ALKALINE PHOSPHATASE 49 Units/L (46-116); ASPARTATE AMINO TRANSFERASE 21 Units/L (15-37); BLOOD UREA NITROGEN 12 mg/dL (7-18); CALCIUM 7.8 mg/dL (8.5-10.1); CARBON DIOXIDE 25.1 mmol/L (21-32); CHLORIDE 101 mmol/L (98-107); COR NA(FOR HYPERGLY) 140 mmol/L (136-145); CREATININE 1.42 mg/dL (0.70-1.30); SODIUM 135 mmol/L (136-145); TOTAL PROTEIN 6.8 g/dL (6.4-8.2); eGFR NON BLACK RACES 53 (>60)
[2021-06-13] MEDS: ZOSYN VIAL 3.375 GRAMS 3.375 G in NS 100 ML IV 100 ML IV SCH ×2 (13:24→21:23)
[2021-06-13] MEDS ORDERED: ZOFRAN INJ 4 MG VIAL IVP PRN (16:00)
[2021-06-14] MEDS: D5 1/2 NS 1000 ML 1,000 ML IV SCH ×5 (05:10→21:31)
[2021-06-14] MEDS: ZOSYN VIAL 3.375 GRAMS 3.375 G in NS 100 ML IV 100 ML IV SCH ×3 (05:18→21:29)
[2021-06-14] MEDS: DILAUDID INJ IVP PRN ×3 (05:28→16:11)
[2021-06-14 06:17] LABS: BASOPHILS % (AUTO) 0.3 % (0.2-1.0); EOSINOPHILS % (AUTO) 0.3 % (0.9-2.9); HEMATOCRIT 31.5 % (42.0-54.0); HEMOGLOBIN 10.7 g/dL (13.5-18.0); LYMPHOCYTES # (AUTO) 1.6 X10^3/uL (1.3-2.9); MEAN CORPUSCULAR HEMOGLOBIN 30.6 pg (27.0-34.0); MEAN CORPUSCULAR HGB CONC 34.1 g/dL (33.0-35.0); MEAN CORPUSCULAR VOLUME 89.9 fL (80.0-100.0); MEAN PLATELET VOLUME 7.4 fL (7.4-11.0); MONOCYTES # (AUTO) 1.1 x10^3/uL (0.3-0.8); MONOCYTES % (AUTO) 9.9 % (0.0-13.0); NEUTROPHILS # (AUTO) 8.1 x10^3/uL (2.2-4.8); NEUTROPHILS % (AUTO) 74.5 % (42.0-75.0); PLATELET COUNT 270 X10^3/uL (150.0-450.0); RED BLOOD COUNT 3.51 X10^6/uL (4.7-6.0); RED CELL DISTRIBUTION WIDTH 13.4 % (11.6-16.5); WHITE BLOOD COUNT 10.8 X10^3/uL (3.6-10.0)
[2021-06-14 06:35] LABS: ALANINE AMINOTRANSFERASE 26 Units/L (12-78); ALBUMIN 2.2 g/dL (3.4-5.0); ALKALINE PHOSPHATASE 53 Units/L (46-116); ASPARTATE AMINO TRANSFERASE 15 Units/L (15-37); BLOOD UREA NITROGEN 13 mg/dL (7-18); CALCIUM 7.7 mg/dL (8.5-10.1); CARBON DIOXIDE 25.5 mmol/L (21-32); CHLORIDE 101 mmol/L (98-107); COR CA(FOR HYPOALB) 9.1 mg/dL (8.5-10.1); COR NA(FOR HYPERGLY) 139 mmol/L (136-145); SODIUM 134 mmol/L (136-145); TOTAL PROTEIN 6.2 g/dL (6.4-8.2); eGFR NON BLACK RACES > 60 (>60)
[2021-06-14] MEDS: PROTONIX INJ 40 MG VIAL IVP SCH (08:39)
[2021-06-14] MEDS: LOVENOX INJ 40 MG SYR SC SCH (08:40)
--- NOTE | 2021-06-14 08:58 | DR.PROGNOT ---
Hospital Progress Notes - Progress Note for Day of: Progress Note Date: 06/14/21 - Chief Complaint Chief Complaint: PO day 2 . doing fairly well . moderate incisional pain . urine is clear and adequate . minimal drainage in ESA . afebrile . - Past Medical Family Social History Past Med/Fam/Surg Hx: No changes since H&P Allergies: Allergies No Known Drug Allergies Allergy (Verified 02/09/21 12:07) - Review Of Systems ROS: No change since H&P - Vital Signs Vital Signs: Temperature 97.5 F Pulse Rate [Left Radial] 98 Pulse Rate 93 Respiratory Rate 18 Blood Pressure [Left Arm] 131/74 Blood Pressure [Right Arm] 149/89 Blood Pressure 108/80 O2 Sat by Pulse Oximetry 98 - Physical Exam Oriented: Normal Eyes: Normal Ear: Normal Nose: Normal Throat: Normal Respiratory: Normal Cardiovascular: Normal : Normal GI:Auscultation: Decreased GI: Tenderness: Diffuse Mood Description: Calm Speech Pattern: Clear, Appropriate - Laboratory and Diagnostics Result Diagrams: 06/14/21 05:36 06/14/21 05:36 Labs: Laboratory WBC 10.8 X10^3/uL (3.6-10.0) H 06/14/21 05:36 RBC 3.51 X10^6/uL (4.7-6.0) L 06/14/21 05:36 Hgb 10.7 g/dL (13.5-18.0) L D 06/14/21 05:36 Hct 31.5 % (42.0-54.0) L 06/14/21 05:36 MCV 89.9 fL (80.0-100.0) 06/14/21 05:36 MCH 30.6 pg (27.0-34.0) 06/14/21 05:36 MCHC 34.1 g/dL (33.0-35.0) 06/14/21 05:36 RDW 13.4 % (11.6-16.5) 06/14/21 05:36 Plt Count 270 X10^3/uL (150.0-450.0) 06/14/21 05:36 MPV 7.4 fL (7.4-11.0) 06/14/21 05:36 Neut % (Auto) 74.5 % (42.0-75.0) 06/14/21 05:36 Lymph % (Auto) 15.0 % (21.0-51.0) L 06/14/21 05:36 [place] % (Auto) 9.9 % (0.0-13.0) 06/14/21 05:36 Eos % (Auto) 0.3 % (0.9-2.9) L 06/14/21 05:36 Baso % (Auto) 0.3 % (0.2-1.0) 06/14/21 05:36 Neut # (Auto) 8.1 x10^3/uL (2.2-4.8) H 06/14/21 05:36 Lymph # (Auto) 1.6 X10^3/uL (1.3-2.9) 06/14/21 05:36 [place] # (Auto) 1.1 x10^3/uL (0.3-0.8) H 06/14/21 05:36 Eos # (Auto) 0.0 x10^3/uL (0.0-0.2) 06/14/21 05:36 Baso # (Auto) 0.0 X10^3/uL (0.0-0.1) 06/14/21 05:36 Absolute Nucleated RBC 0.0 /100WBC 06/14/21 05:36 Sodium 134 mmol/L (136-145) L 06/14/21 05:36 Corrected Sodium 139 mmol/L (136-145) 06/14/21 05:36 Potassium 3.9 mmol/L (3.5-5.1) 06/14/21 05:36 Chloride 101 mmol/L (98-107) 06/14/21 05:36 Carbon Dioxide 25.5 mmol/L (21-32) 06/14/21 05:36 BUN 13 mg/dL (7-18) 06/14/21 05:36 Creatinine 1.20 mg/dL (0.70-1.30) 06/14/21 05:36 Est GFR (MDRD) Af Amer > 60 (>60) 06/14/21 05:36 Est GFR (MDRD) Non-Af > 60 (>60) 06/14/21 05:36 Glucose 290 mg/dL (65-99) H 06/14/21 05:36 POC Glucose (mg/dL) 156 mg/dL (65-99) H 06/12/21 11:23 Calcium 7.7 mg/dL (8.5-10.1) L 06/14/21 05:36 Corrected Calcium 9.1 mg/dL (8.5-10.1) 06/14/21 05:36 Total Bilirubin 0.70 mg/dL (0.2-1.0) 06/14/21 05:36 AST 15 Units/L (15-37) 06/14/21 05:36 ALT 26 Units/L (12-78) 06/14/21 05:36 Alkaline Phosphatase 53 Units/L (46-116) 06/14/21 05:36 Total Protein 6.2 g/dL (6.4-8.2) L 06/14/21 05:36 Albumin 2.2 g/dL (3.4-5.0) L 06/14/21 05:36 Globulin 4.0 g/dL (2.5-4.5) 06/14/21 05:36 Albumin/Globulin Ratio 0.6 Ratio (1.1-2.1) L 06/14/21 05:36 Tissue Pathology To follow 06/12/21 12:35 - Assessment and Plan 1: PO laparotomy . recto -sigmoid resection . division of colo-vesical fistula . repair bladder fistula . same PO care .. on clear liquid ..
--- NOTE | 2021-06-14 10:17 | DR.CONSULT ---
Consult - Consultation for Day of: Date: 06/13/21 - Chief Complaint Chief Complaint: STATUS POST COLON RESECTION AND DIVISION OF COLOVESICAL FISTULA - History of Present Illness History of Present Illness: IS A 66 YEAR OLD PATIENT OF OURS. HE IS DAY 1 POST OP. STATUS POST COLON RESECTION AND DIVISION OF COLOVESTICAL FISTULA DUE TO RECURRENT SIGMOID DIVERTICULITIS AND CHRONIC COLOVESICAL FISTULA. PATIENT HAD BEEN HAVING RECURRENT AND PERSISTENT URINARY TRACT INFECTIONS DESPITE TREATMENT WITH ANTIBIOTICS. WE WERE CONSULTED FOR MEDICAL MANAGEMENT OF PATIENTS CHRONIC CONDITIONS. HIS PMH INCLUDES: HYPERLIPIDEMIA, HTN, DIABETES TYPE II, GERD, DIVERTICULITIS, SLEEP APNEA. TODAY, HE IS ALERT, LYING IN BED ON MORNING ROUNDS. HE REPORTS DIFFUSE ABDOMINAL PAIN, WHICH HAS BEEN CONTROLLED WITH ORDERED PAIN MEDICATIONS. SURGICAL DRESSINGS TO ABDOMEN ARE DRY AND INTACT. NO SIGNS OR SYMPTOMS OF INFECTION ARE NOTED. THERE IS A ESA DRAIN TO THE LEFT SIDE ABDOMEN. HYPOACTIVE BOWEL SOUNDS. REYES CATHETER NOTED TO BEDSIDE DRAINAGE. HIS VITALS THIS MORNING ARE: 97.4-98-18-99%-136/91. LABS WERE OBTAINED. ABNORMAL LAB VALUES INCLUDE THE FOLLOWING: WBC 13.3, RBC 4.23, HGB 12.7, HCT 38.3, SODIUM 135, CREATININE 1.42, GLUCOSE 321, CALCIUM 7.8, ALBUMIN 2.5. HE IS CURRENTLY RECEIVING D51/2NS AT 125ML/HR, ZOSYN 3.375G IV TID, LOVENOX 40MG SC DAILY, DILAUDID 2MG IV Q4H PRN, ZOFRAN 4MG IV Q6H PRN, PROTONIX 40MG IV DAILY. WE WILL REVIEW HIS HOME MEDICATIONS AND RESUME APPROPRIATE. PHYSICAL THERAPY WILL WORK WITH GETTING PATIENT OUT OF BED TODAY. OTHERWISE, WE PLAN TO FOLLOW UP WITH AM LABS AND CONTINUE TO MONITOR. TIME SPENT ON CLINICAL ASSESSMENT, REVIEWING LABS AND IMAGING, DECISION MAKING, AND DOCUMENTATION GREATER THAN 45 MINUTES. - Past Medical History Past Medical History: Diabetes, Dyslipidemia, GERD, Hypertension, Sleep Apnea - Past Surgical History Surgical History: Cholecystectomy, Joint Replacement, Other - Family History Family Medical History: Diabetes Mellitus - Social History Does patient currently use any type of tobacco product: No Type of Tobacco Use: None Alcohol Use: None Drug Use: None - Medications Home Medications: No Known Drug Allergies Allergy (Verified 02/09/21 12:07) CONTINUE taking the following medications famotidine 40 mg PO DAILY 06/13/21 [History] hydrocodone-acetaminophen 1 tab PO BID 06/13/21 [History] insulin detemir U-100 [Levemir FlexTouch U-100 Insuln] 10 unit SUBCUT BID 06/13/21 [History] metoprolol tartrate 50 mg PO BID 06/13/21 [History] pantoprazole 40 mg PO DAILY 06/13/21 [History] - Review of Systems Constitutional: Weakness Eyes: No Symptoms Reported ENT: No Symptoms Reported Respiratory: No Symptoms Reported Cardiovascular: No Symptoms Reported Gastrointestinal: Nausea, Abdominal Pain Musculoskeletal: No Symptoms Reported Skin: No Symptoms Reported Neurological: Weakness - Physical Exam Vital Signs: Temperature 97.5 F Pulse Rate [Left Radial] 98 Pulse Rate 93 Respiratory Rate 18 Blood Pressure [Left Arm] 131/74 Blood Pressure [Right Arm] 149/89 Blood Pressure 108/80 O2 Sat by Pulse Oximetry 98 Oriented: Normal Eyes: Normal Ear: Normal Nose: Normal Throat: Normal Respiratory: Diminished Throughout Cardiovascular: Normal : Normal, Other (REYES CATHETER ) Auscultation: Bowel Sounds: Decreased Palpation: Normal Tenderness: Diffuse, Moderate Skin: Wound (SURGICAL INCISION TO ABDOMEN, ESA DRAIN) Musculoskeletal: Normal Psychiatric: Normal Mood Description: Calm Affect: Normal Speech Pattern: Clear - Plan Plan: SURGICAL INCISION CARE, PHYSICAL THERAPY, D51/2NS AT 125ML/HR, ZOSYN 3.375G IV TID, LOVENOX 40MG SC DAILY, DILAUDID 2MG IV Q4H PRN, ZOFRAN 4MG IV Q6H PRN, PROTONIX 40MG IV DAILY. - Allergies Allergies/Adverse Reactions: Allergies Allergy/AdvReac Type Severity Reaction Status Date / Time No Known Drug Allergies Allergy Verified 02/09/21 12:07
--- NOTE | 2021-06-14 10:34 | PCM.PROG ---
Progress Note - Progress Note for Day of Date of Exam: 06/14/21 - Subjective Subjective: IS A 66 YEAR OLD PATIENT OF OURS. HE IS DAY 2 POST OP. STATUS POST COLON RESECTION AND DIVISION OF COLOVESTICAL FISTULA DUE TO RECURRENT SIGMOID DIVERTICULITIS AND CHRONIC COLOVESICAL FISTULA. TODAY, HE IS ALERT, LYING IN BED ON MORNING ROUNDS. HE REPORTS DIFFUSE ABDOMINAL PAIN, WHICH HAS BEEN CONTROLLED WITH ORDERED PAIN MEDICATIONS. ON EXAMINATION, HEART IS REGULAR IN RATE AND RHYTHM. BILATERAL LUNGS NOTED TO HAVE DIMINISHED LUNG SOUNDS THROUGHOUT. SURGICAL DRESSINGS TO ABDOMEN ARE DRY AND INTACT. NO SIGNS OR SYMPTOMS OF INFECTION ARE NOTED. THERE IS A ESA DRAIN TO THE LEFT SIDE ABDOMEN. HYPOACTIVE BOWEL SOUNDS NOTED. REYES CATHETER NOTED TO BEDSIDE DRAINAGE. HIS VITALS THIS MORNING ARE: 97.5-98-18-98%-131/74. LABS WERE OBTAINED. ABNORMAL LAB VALUES INCLUDE THE FOLLOWING: WBC 10.8, RBC 3.51, HGB 10.7, HCT 31.5, SODIUM 134, GLUCOSE 290, CALCIUM 7.7, TOTAL PROTEIN 6.2, ALBUMIN 2.2. HE IS CURRENTLY RECEIVING D51/2NS AT 125ML/HR, ZOSYN 3.375G IV TID, LOVENOX 40MG SC DAILY, DILAUDID 2MG IV Q4H PRN, ZOFRAN 4MG IV Q6H PRN, PROTONIX 40MG IV DAILY. WE WILL REVIEW HIS HOME MEDICATIONS AND RESUME APPROPRIATE. PHYSICAL THERAPY WILL WORK WITH GETTING PATIENT OUT OF BED TODAY. OTHERWISE, WE PLAN TO FOLLOW UP WITH AM LABS AND CONTINUE TO MONITOR. TIME SPENT ON CLINICAL ASSESSMENT, REVIEWING LABS AND IMAGING, DECISION MAKING, AND DOCUMENTATION GREATER THAN 45 MINUTES. - Past Medical Family Social History Past Med/Fam/Surg Hx: No changes since H&P Allergies: Allergies No Known Drug Allergies Allergy (Verified 02/09/21 12:07) - Review of Systems ROS: No change since H&P - Vital Signs and I&O's Vital Signs: Temperature 97.5 F Pulse Rate [Left Radial] 98 Pulse Rate 93 Respiratory Rate 18 Blood Pressure [Left Arm] 131/74 Blood Pressure [Right Arm] 149/89 Blood Pressure 108/80 O2 Sat by Pulse Oximetry 98 Intake and Output: Intake & Output 06/11/21 06/12/21 06/13/21 06/14/21 11:59 11:59 11:59 11:59 Intake Total 4578 / 4578 3472 / 3472 Output Total 2010 605 / 605 Balance 2567 / 2567 2867 / 2867 - Physical Exam Oriented: Normal Eyes: Normal Ear: Normal Nose: Normal Throat: Normal Respiratory: Normal Cardiovascular: Normal : Normal, Other (REYES CATHETER ) Auscultation: Bowel Sounds: Decreased Tenderness: Diffuse, Moderate Skin: Wound (SURGICAL INCISION TO ABDOMEN, ESA DRAIN) Musculoskeletal: Normal Psychiatric: Normal Mood Description: Calm Affect: Normal Speech Pattern: Clear - Laboratory and Diagnostics Result Diagrams: 06/14/21 05:36 06/14/21 05:36 Labs: Laboratory WBC 10.8 X10^3/uL (3.6-10.0) H 06/14/21 05:36 RBC 3.51 X10^6/uL (4.7-6.0) L 06/14/21 05:36 Hgb 10.7 g/dL (13.5-18.0) L D 06/14/21 05:36 Hct 31.5 % (42.0-54.0) L 06/14/21 05:36 MCV 89.9 fL (80.0-100.0) 06/14/21 05:36 MCH 30.6 pg (27.0-34.0) 06/14/21 05:36 MCHC 34.1 g/dL (33.0-35.0) 06/14/21 05:36 RDW 13.4 % (11.6-16.5) 06/14/21 05:36 Plt Count 270 X10^3/uL (150.0-450.0) 06/14/21 05:36 MPV 7.4 fL (7.4-11.0) 06/14/21 05:36 Neut % (Auto) 74.5 % (42.0-75.0) 06/14/21 05:36 Lymph % (Auto) 15.0 % (21.0-51.0) L 06/14/21 05:36 [place] % (Auto) 9.9 % (0.0-13.0) 06/14/21 05:36 Eos % (Auto) 0.3 % (0.9-2.9) L 06/14/21 05:36 Baso % (Auto) 0.3 % (0.2-1.0) 06/14/21 05:36 Neut # (Auto) 8.1 x10^3/uL (2.2-4.8) H 06/14/21 05:36 Lymph # (Auto) 1.6 X10^3/uL (1.3-2.9) 06/14/21 05:36 [place] # (Auto) 1.1 x10^3/uL (0.3-0.8) H 06/14/21 05:36 Eos # (Auto) 0.0 x10^3/uL (0.0-0.2) 06/14/21 05:36 Baso # (Auto) 0.0 X10^3/uL (0.0-0.1) 06/14/21 05:36 Absolute Nucleated RBC 0.0 /100WBC 06/14/21 05:36 Sodium 134 mmol/L (136-145) L 06/14/21 05:36 Corrected Sodium 139 mmol/L (136-145) 06/14/21 05:36 Potassium 3.9 mmol/L (3.5-5.1) 06/14/21 05:36 Chloride 101 mmol/L (98-107) 06/14/21 05:36 Carbon Dioxide 25.5 mmol/L (21-32) 06/14/21 05:36 BUN 13 mg/dL (7-18) 06/14/21 05:36 Creatinine 1.20 mg/dL (0.70-1.30) 06/14/21 05:36 Est GFR (MDRD) Af Amer > 60 (>60) 06/14/21 05:36 Est GFR (MDRD) Non-Af > 60 (>60) 06/14/21 05:36 Glucose 290 mg/dL (65-99) H 06/14/21 05:36 POC Glucose (mg/dL) 156 mg/dL (65-99) H 06/12/21 11:23 Calcium 7.7 mg/dL (8.5-10.1) L 06/14/21 05:36 Corrected Calcium 9.1 mg/dL (8.5-10.1) 06/14/21 05:36 Total Bilirubin 0.70 mg/dL (0.2-1.0) 06/14/21 05:36 AST 15 Units/L (15-37) 06/14/21 05:36 ALT 26 Units/L (12-78) 06/14/21 05:36 Alkaline Phosphatase 53 Units/L (46-116) 06/14/21 05:36 Total Protein 6.2 g/dL (6.4-8.2) L 06/14/21 05:36 Albumin 2.2 g/dL (3.4-5.0) L 06/14/21 05:36 Globulin 4.0 g/dL (2.5-4.5) 06/14/21 05:36 Albumin/Globulin Ratio 0.6 Ratio (1.1-2.1) L 06/14/21 05:36 Tissue Pathology To follow 06/12/21 12:35 - Plan (1) Status post colon resection Status: Acute Plan: PT, WOUND CARE, D51/2NS AT 125ML/HR, ZOSYN 3.375G IV TID, LOVENOX 40MG SC DAILY, DILAUDID 2MG IV Q4H PRN, ZOFRAN 4MG IV Q6H PRN, PROTONIX 40MG IV DAILY, RESUME HOME MEDS
[2021-06-15] MEDS: DILAUDID INJ IVP PRN ×2 (00:07→17:58)
[2021-06-15] MEDS: D5 1/2 NS 1000 ML 1,000 ML IV SCH ×5 (00:13→23:38)
[2021-06-15] MEDS: ZOSYN VIAL 3.375 GRAMS 3.375 G in NS 100 ML IV 100 ML IV SCH ×3 (05:19→21:00)
[2021-06-15 06:15] LABS: BASOPHILS % (AUTO) 0.5 % (0.2-1.0); EOSINOPHILS # (AUTO) 0.2 x10^3/uL (0.0-0.2); EOSINOPHILS % (AUTO) 2.1 % (0.9-2.9); HEMATOCRIT 30.9 % (42.0-54.0); HEMOGLOBIN 10.4 g/dL (13.5-18.0); LYMPHOCYTES # (AUTO) 1.7 X10^3/uL (1.3-2.9); LYMPHOCYTES % (AUTO) 20.9 % (21.0-51.0); MEAN CORPUSCULAR HEMOGLOBIN 30.3 pg (27.0-34.0); MEAN CORPUSCULAR HGB CONC 33.7 g/dL (33.0-35.0); MEAN PLATELET VOLUME 7.1 fL (7.4-11.0); MONOCYTES # (AUTO) 0.7 x10^3/uL (0.3-0.8); MONOCYTES % (AUTO) 8.3 % (0.0-13.0); NEUTROPHILS # (AUTO) 5.4 x10^3/uL (2.2-4.8); NEUTROPHILS % (AUTO) 68.2 % (42.0-75.0); PLATELET COUNT 278 X10^3/uL (150.0-450.0); RED BLOOD COUNT 3.44 X10^6/uL (4.7-6.0); RED CELL DISTRIBUTION WIDTH 13.3 % (11.6-16.5); WHITE BLOOD COUNT 7.9 X10^3/uL (3.6-10.0)
[2021-06-15 06:30] LABS: ALANINE AMINOTRANSFERASE 21 Units/L (12-78); ALBUMIN 2.1 g/dL (3.4-5.0); ALKALINE PHOSPHATASE 64 Units/L (46-116); ASPARTATE AMINO TRANSFERASE 12 Units/L (15-37); BLOOD UREA NITROGEN 7 mg/dL (7-18); CARBON DIOXIDE 29.7 mmol/L (21-32); CHLORIDE 104 mmol/L (98-107); COR CA(FOR HYPOALB) 9.5 mg/dL (8.5-10.1); COR NA(FOR HYPERGLY) 141 mmol/L (136-145); CREATININE 1.03 mg/dL (0.70-1.30); SODIUM 137 mmol/L (136-145); TOTAL PROTEIN 6.3 g/dL (6.4-8.2); eGFR NON BLACK RACES > 60 (>60)
[2021-06-15] MEDS ORDERED: GLUCOPHAGE PO SCH (10:00)
[2021-06-15] MEDS: LOVENOX INJ 40 MG SYR SC SCH (10:17)
[2021-06-15] MEDS: PROTONIX INJ 40 MG VIAL IVP SCH (10:19)
[2021-06-15] MEDS: PULMICORT NEB TX 0.5 MG NEB SCH ×2 (10:33→21:10)
[2021-06-15] MEDS: DUONEB 0.5 MG/3 MG (3 mL) NEB SCH ×3 (10:33→21:10)
[2021-06-15] MEDS: PEPCID TAB 40 MG PO SCH (12:22)
[2021-06-15] MEDS: LOPRESSOR TAB 50 MG PO SCH ×2 (12:22→21:00)
[2021-06-15] MEDS: FLOMAX PO SCH (12:23)
[2021-06-15] MEDS: HumuLIN R SUBCUT PRN ×2 (12:24→18:05)
--- NOTE | 2021-06-15 13:01 | PCM.PROG ---
Progress Note - Progress Note for Day of Date of Exam: 06/15/21 - Subjective Subjective: IS A 66 YEAR OLD PATIENT OF OURS. HE IS DAY 3 POST OP. STATUS POST COLON RESECTION AND DIVISION OF COLOVESTICAL FISTULA DUE TO RECURRENT SIGMOID DIVERTICULITIS AND CHRONIC COLOVESICAL FISTULA. TODAY, HE IS ALERT, LYING IN BED ON MORNING ROUNDS. HE REPORTS DIFFUSE ABDOMINAL PAIN, WHICH HAS BEEN CONTROLLED WITH ORDERED PAIN MEDICATIONS. ON EXAMINATION, HEART IS REGULAR IN RATE AND RHYTHM. BILATERAL LUNGS NOTED TO HAVE DIMINISHED LUNG SOUNDS THROUGHOUT. SURGICAL DRESSINGS TO ABDOMEN ARE DRY AND INTACT. NO SIGNS OR SYMPTOMS OF INFECTION ARE NOTED. THERE IS A ESA DRAIN TO THE LEFT SIDE ABDOMEN. HYPOACTIVE BOWEL SOUNDS NOTED. REYES CATHETER NOTED TO BEDSIDE DRAINAGE. HIS VITALS THIS MORNING ARE: 97.0-90-20-97%-176/84. LABS WERE OBTAINED. ABNORMAL LAB VALUES INCLUDE THE FOLLOWING: RBC 3.44, HGB 10.4, HCT 30.9, GLUCOSE 249, CALCIUM 8.0, AST 12, TOTAL PROTEIN 6.3, ALBUMIN 2.1. HE IS CURRENTLY RECEIVING D51/2NS AT 125ML/HR, ZOSYN 3.375G IV TID, LOVENOX 40MG SC DAILY, DILAUDID 2MG IV Q4H PRN, ZOFRAN 4MG IV Q6H PRN, PROTONIX 40MG IV DAILY, PEPCID 40MG PO DAILY, NORCO 10/325MG PO BID PRN, LOPRESSOR 50MG PO BID, ZOCOR 20MG PO HS, FLOMAX 0.4MG PO DAILY. PHYSICAL THERAPY WILL WORK WITH GETTING PATIENT OUT OF BED TODAY. OTHERWISE, WE PLAN TO FOLLOW UP WITH AM LABS AND CONTINUE TO MONITOR. TIME SPENT ON CLINICAL ASSESSMENT, REVIEWING LABS AND IMAGING, DECISION MAKING, AND DOCUMEN TATION GREATER THAN 45 MINUTES. - Past Medical Family Social History Past Med/Fam/Surg Hx: No changes since H&P Allergies: Allergies No Known Drug Allergies Allergy (Verified 02/09/21 12:07) - Review of Systems ROS: No change since H&P - Vital Signs and I&O's Vital Signs: Temperature 97.0 F Pulse Rate [Left Radial] 90 Pulse Rate 95 Respiratory Rate 20 Blood Pressure [Left Arm] 176/84 Blood Pressure [Right Arm] 149/89 Blood Pressure 108/80 O2 Sat by Pulse Oximetry 97 Intake and Output: Intake & Output 06/13/21 06/14/21 06/15/21 06/16/21 11:59 11:59 11:59 11:59 Intake Total 4578 / 4578 3472 / 3472 4584 / 4584 Output Total 2010 605 / 605 3322 / 3322 Balance 2567 / 2567 2867 / 2867 1262 / 1262 - Physical Exam Oriented: Normal Eyes: Normal Ear: Normal Nose: Normal Throat: Normal Respiratory: Normal Cardiovascular: Normal : Normal, Other (REYES CATHETER ) Auscultation: Bowel Sounds: Decreased Palpation: Normal Tenderness: Diffuse, Moderate Skin: Wound (SURGICAL INCISION TO ABDOMEN, ESA DRAIN) Musculoskeletal: Normal Psychiatric: Normal Mood Description: Calm Affect: Normal Speech Pattern: Clear, Appropriate - Laboratory and Diagnostics Result Diagrams: 06/15/21 05:53 06/15/21 05:53 Labs: Laboratory WBC 7.9 X10^3/uL (3.6-10.0) 06/15/21 05:53 RBC 3.44 X10^6/uL (4.7-6.0) L 06/15/21 05:53 Hgb 10.4 g/dL (13.5-18.0) L 06/15/21 05:53 Hct 30.9 % (42.0-54.0) L 06/15/21 05:53 MCV 90.0 fL (80.0-100.0) 06/15/21 05:53 MCH 30.3 pg (27.0-34.0) 06/15/21 05:53 MCHC 33.7 g/dL (33.0-35.0) 06/15/21 05:53 RDW 13.3 % (11.6-16.5) 06/15/21 05:53 Plt Count 278 X10^3/uL (150.0-450.0) 06/15/21 05:53 MPV 7.1 fL (7.4-11.0) L 06/15/21 05:53 Neut % (Auto) 68.2 % (42.0-75.0) 06/15/21 05:53 Lymph % (Auto) 20.9 % (21.0-51.0) L 06/15/21 05:53 [place] % (Auto) 8.3 % (0.0-13.0) 06/15/21 05:53 Eos % (Auto) 2.1 % (0.9-2.9) 06/15/21 05:53 Baso % (Auto) 0.5 % (0.2-1.0) 06/15/21 05:53 Neut # (Auto) 5.4 x10^3/uL (2.2-4.8) H 06/15/21 05:53 Lymph # (Auto) 1.7 X10^3/uL (1.3-2.9) 06/15/21 05:53 [place] # (Auto) 0.7 x10^3/uL (0.3-0.8) 06/15/21 05:53 Eos # (Auto) 0.2 x10^3/uL (0.0-0.2) 06/15/21 05:53 Baso # (Auto) 0.0 X10^3/uL (0.0-0.1) 06/15/21 05:53 Absolute Nucleated RBC 0.0 /100WBC 06/15/21 05:53 Sodium 137 mmol/L (136-145) 06/15/21 05:53 Corrected Sodium 141 mmol/L (136-145) 06/15/21 05:53 Potassium 3.8 mmol/L (3.5-5.1) 06/15/21 05:53 Chloride 104 mmol/L (98-107) 06/15/21 05:53 Carbon Dioxide 29.7 mmol/L (21-32) 06/15/21 05:53 BUN 7 mg/dL (7-18) 06/15/21 05:53 Creatinine 1.03 mg/dL (0.70-1.30) 06/15/21 05:53 Est GFR (MDRD) Af Amer > 60 (>60) 06/15/21 05:53 Est GFR (MDRD) Non-Af > 60 (>60) 06/15/21 05:53 Glucose 249 mg/dL (65-99) H 06/15/21 05:53 POC Glucose (mg/dL) 254 mg/dL (65-99) H 06/15/21 12:11 Calcium 8.0 mg/dL (8.5-10.1) L 06/15/21 05:53 Corrected Calcium 9.5 mg/dL (8.5-10.1) 06/15/21 05:53 Total Bilirubin 0.60 mg/dL (0.2-1.0) 06/15/21 05:53 AST 12 Units/L (15-37) L 06/15/21 05:53 ALT 21 Units/L (12-78) 06/15/21 05:53 Alkaline Phosphatase 64 Units/L (46-116) 06/15/21 05:53 Total Protein 6.3 g/dL (6.4-8.2) L 06/15/21 05:53 Albumin 2.1 g/dL (3.4-5.0) L 06/15/21 05:53 Globulin 4.2 g/dL (2.5-4.5) 06/15/21 05:53 Albumin/Globulin Ratio 0.5 Ratio (1.1-2.1) L 06/15/21 05:53 Tissue Pathology To follow 06/12/21 12:35 - Plan (1) Status post colon resection Status: Acute Plan: PT, WOUND CARE, D51/2NS AT 125ML/HR, ZOSYN 3.375G IV TID, LOVENOX 40MG SC DAILY, DILAUDID 2MG IV Q4H PRN, ZOFRAN 4MG IV Q6H PRN, PROTONIX 40MG IV DAILY, RESUME HOME MEDS
--- NOTE | 2021-06-15 13:16 | DR.PROGNOT ---
Hospital Progress Notes - Progress Note for Day of: Progress Note Date: 06/15/21 - Chief Complaint Chief Complaint: PO day 3 . doing fairly well . moderate incisional pain . urine is clear and adequate . minimal drainage in ESA . afebrile . - Past Medical Family Social History Past Med/Fam/Surg Hx: No changes since H&P Allergies: Allergies No Known Drug Allergies Allergy (Verified 02/09/21 12:07) - Review Of Systems ROS: No change since H&P - Vital Signs Vital Signs: Temperature 97.0 F Pulse Rate [Left Radial] 90 Pulse Rate 95 Respiratory Rate 20 Blood Pressure [Left Arm] 176/84 Blood Pressure [Right Arm] 149/89 Blood Pressure 108/80 O2 Sat by Pulse Oximetry 97 - Physical Exam Oriented: Normal Eyes: Normal Ear: Normal Nose: Normal Throat: Normal Respiratory: Normal Cardiovascular: Normal : Normal, Other (REYES CATHETER ) GI:Auscultation: Decreased GI:Palpation: Normal GI: Tenderness: Diffuse, Moderate Skin: Wound (SURGICAL INCISION TO ABDOMEN, ESA DRAIN) Musculoskeletal: Normal Psychiatric: Normal Mood Description: Calm Affect: Normal Speech Pattern: Clear, Appropriate - Laboratory and Diagnostics Result Diagrams: 06/15/21 05:53 06/15/21 05:53 Labs: Laboratory WBC 7.9 X10^3/uL (3.6-10.0) 06/15/21 05:53 RBC 3.44 X10^6/uL (4.7-6.0) L 06/15/21 05:53 Hgb 10.4 g/dL (13.5-18.0) L 06/15/21 05:53 Hct 30.9 % (42.0-54.0) L 06/15/21 05:53 MCV 90.0 fL (80.0-100.0) 06/15/21 05:53 MCH 30.3 pg (27.0-34.0) 06/15/21 05:53 MCHC 33.7 g/dL (33.0-35.0) 06/15/21 05:53 RDW 13.3 % (11.6-16.5) 06/15/21 05:53 Plt Count 278 X10^3/uL (150.0-450.0) 06/15/21 05:53 MPV 7.1 fL (7.4-11.0) L 06/15/21 05:53 Neut % (Auto) 68.2 % (42.0-75.0) 06/15/21 05:53 Lymph % (Auto) 20.9 % (21.0-51.0) L 06/15/21 05:53 [place] % (Auto) 8.3 % (0.0-13.0) 06/15/21 05:53 Eos % (Auto) 2.1 % (0.9-2.9) 06/15/21 05:53 Baso % (Auto) 0.5 % (0.2-1.0) 06/15/21 05:53 Neut # (Auto) 5.4 x10^3/uL (2.2-4.8) H 06/15/21 05:53 Lymph # (Auto) 1.7 X10^3/uL (1.3-2.9) 06/15/21 05:53 [place] # (Auto) 0.7 x10^3/uL (0.3-0.8) 06/15/21 05:53 Eos # (Auto) 0.2 x10^3/uL (0.0-0.2) 06/15/21 05:53 Baso # (Auto) 0.0 X10^3/uL (0.0-0.1) 06/15/21 05:53 Absolute Nucleated RBC 0.0 /100WBC 06/15/21 05:53 Sodium 137 mmol/L (136-145) 06/15/21 05:53 Corrected Sodium 141 mmol/L (136-145) 06/15/21 05:53 Potassium 3.8 mmol/L (3.5-5.1) 06/15/21 05:53 Chloride 104 mmol/L (98-107) 06/15/21 05:53 Carbon Dioxide 29.7 mmol/L (21-32) 06/15/21 05:53 BUN 7 mg/dL (7-18) 06/15/21 05:53 Creatinine 1.03 mg/dL (0.70-1.30) 06/15/21 05:53 Est GFR (MDRD) Af Amer > 60 (>60) 06/15/21 05:53 Est GFR (MDRD) Non-Af > 60 (>60) 06/15/21 05:53 Glucose 249 mg/dL (65-99) H 06/15/21 05:53 POC Glucose (mg/dL) 254 mg/dL (65-99) H 06/15/21 12:11 Calcium 8.0 mg/dL (8.5-10.1) L 06/15/21 05:53 Corrected Calcium 9.5 mg/dL (8.5-10.1) 06/15/21 05:53 Total Bilirubin 0.60 mg/dL (0.2-1.0) 06/15/21 05:53 AST 12 Units/L (15-37) L 06/15/21 05:53 ALT 21 Units/L (12-78) 06/15/21 05:53 Alkaline Phosphatase 64 Units/L (46-116) 06/15/21 05:53 Total Protein 6.3 g/dL (6.4-8.2) L 06/15/21 05:53 Albumin 2.1 g/dL (3.4-5.0) L 06/15/21 05:53 Globulin 4.2 g/dL (2.5-4.5) 06/15/21 05:53 Albumin/Globulin Ratio 0.5 Ratio (1.1-2.1) L 06/15/21 05:53 Tissue Pathology To follow 06/12/21 12:35 - Assessment and Plan 1: PO laparotomy . recto -sigmoid resection . division of colo-vesical fistula . repair bladder fistula . same PO care .. on full liquid .. - Problem Patient Problems: Patient Problems Status post colon resection (Acute) Z90.49
--- NOTE | 2021-06-15 14:48 | RAD ---
HISTORYSOB HTN, DM, ORTHO, GBSTUDYCHEST, 1 VIEWCOMPARISONPA and lateral chest May 29, 2021FINDINGSThe trachea is midline. The cardiac silhouette is unremarkable. The lungs are clear without focal infiltrate or effusion. A linear density is present the left lung base which may be atelectasis versus an artifact but is a new finding compared to May 29, 2021. The bony thorax is unremarkable.IMPRESSIONNew linear infiltrate versus artifact left lower lung field. This is a new finding when compared to May 29, 2021.Electronically signed by: GENOVEVA ROSADO (Jun 15, 2021 14:47:04)
[2021-06-15] MEDS ORDERED: SNACK - Diabetic Appropriate PO SCH (20:00)
[2021-06-15] MEDS: SNACK - Diabetic Appropriate PO SCH (20:01)
[2021-06-15] MEDS: ZOCOR TAB 20 MG PO SCH (21:07)
[2021-06-15] MEDS: NORCO 10/325 TAB PO PRN (21:37)
[2021-06-16] MEDS: ZOSYN VIAL 3.375 GRAMS 3.375 G in NS 100 ML IV 100 ML IV SCH ×3 (05:06→21:50)
[2021-06-16 06:08] LABS: BASOPHILS # (AUTO) 0.1 X10^3/uL (0.0-0.1); EOSINOPHILS # (AUTO) 0.3 x10^3/uL (0.0-0.2); EOSINOPHILS % (AUTO) 3.7 % (0.9-2.9); HEMOGLOBIN 10.1 g/dL (13.5-18.0); LYMPHOCYTES # (AUTO) 1.7 X10^3/uL (1.3-2.9); LYMPHOCYTES % (AUTO) 25.1 % (21.0-51.0); MEAN CORPUSCULAR HEMOGLOBIN 30.2 pg (27.0-34.0); MEAN CORPUSCULAR HGB CONC 33.6 g/dL (33.0-35.0); MEAN CORPUSCULAR VOLUME 89.8 fL (80.0-100.0); MONOCYTES # (AUTO) 0.6 x10^3/uL (0.3-0.8); MONOCYTES % (AUTO) 8.6 % (0.0-13.0); NEUTROPHILS # (AUTO) 4.3 x10^3/uL (2.2-4.8); NEUTROPHILS % (AUTO) 61.6 % (42.0-75.0); PLATELET COUNT 314 X10^3/uL (150.0-450.0); RED BLOOD COUNT 3.34 X10^6/uL (4.7-6.0); RED CELL DISTRIBUTION WIDTH 13.5 % (11.6-16.5); WHITE BLOOD COUNT 6.9 X10^3/uL (3.6-10.0)
[2021-06-16] MEDS: DUONEB 0.5 MG/3 MG (3 mL) NEB SCH ×3 (06:18→21:49)
[2021-06-16 06:35] LABS: ALANINE AMINOTRANSFERASE 19 Units/L (12-78); ALKALINE PHOSPHATASE 68 Units/L (46-116); ASPARTATE AMINO TRANSFERASE 12 Units/L (15-37); BLOOD UREA NITROGEN 6 mg/dL (7-18); CALCIUM 8.1 mg/dL (8.5-10.1); CHLORIDE 103 mmol/L (98-107); COR CA(FOR HYPOALB) 9.7 mg/dL (8.5-10.1); COR NA(FOR HYPERGLY) 140 mmol/L (136-145); CREATININE 1.06 mg/dL (0.70-1.30); SODIUM 137 mmol/L (136-145); TOTAL PROTEIN 6.2 g/dL (6.4-8.2); eGFR NON BLACK RACES > 60 (>60)
[2021-06-16] MEDS: HumuLIN R SUBCUT PRN ×4 (07:04→21:56)
[2021-06-16] MEDS: PROTONIX INJ 40 MG VIAL IVP SCH (08:27)
[2021-06-16] MEDS: D5 1/2 NS 1000 ML 1,000 ML IV SCH ×4 (08:27→23:09)
[2021-06-16] MEDS: LOVENOX INJ 40 MG SYR SC SCH (08:27)
[2021-06-16] MEDS: MILK OF MAGNESIA PO SCH (08:28)
[2021-06-16] MEDS: FLOMAX PO SCH (08:28)
[2021-06-16] MEDS: LOPRESSOR TAB 50 MG PO SCH ×2 (08:28→21:49)
[2021-06-16] MEDS: PEPCID TAB 40 MG PO SCH (08:29)
[2021-06-16] MEDS: NORCO 10/325 TAB PO PRN ×2 (08:32→21:49)
--- NOTE | 2021-06-16 08:47 | DR.PROGNOT ---
Hospital Progress Notes - Progress Note for Day of: Progress Note Date: 06/16/21 - Chief Complaint Chief Complaint: PO day 4 . doing fairly well . moderate incisional pain . urine is clear and adequate . minimal drainage in ESA . afebrile . ESA was removed and dressing was changed .. no infection - Past Medical Family Social History Past Med/Fam/Surg Hx: No changes since H&P Allergies: Allergies No Known Drug Allergies Allergy (Verified 02/09/21 12:07) - Review Of Systems ROS: No change since H&P - Vital Signs Vital Signs: Temperature 98.0 F Pulse Rate [Left Radial] 81 Pulse Rate 80 Respiratory Rate 18 Blood Pressure [Left Arm] 170/82 Blood Pressure [Right Arm] 149/89 Blood Pressure 108/80 O2 Sat by Pulse Oximetry 96 - Physical Exam Oriented: Normal Eyes: Normal Ear: Normal Nose: Normal Throat: Normal Respiratory: Normal Cardiovascular: Normal : Normal, Other (REYES CATHETER ) GI:Auscultation: Decreased GI:Palpation: Normal GI: Tenderness: Diffuse, Moderate Skin: Wound (SURGICAL INCISION TO ABDOMEN, ESA DRAIN) Musculoskeletal: Normal Psychiatric: Normal Mood Description: Calm Affect: Normal Speech Pattern: Clear, Appropriate - Laboratory and Diagnostics Result Diagrams: 06/16/21 05:36 06/16/21 05:36 Labs: Laboratory WBC 6.9 X10^3/uL (3.6-10.0) 06/16/21 05:36 RBC 3.34 X10^6/uL (4.7-6.0) L 06/16/21 05:36 Hgb 10.1 g/dL (13.5-18.0) L 06/16/21 05:36 Hct 30.0 % (42.0-54.0) L 06/16/21 05:36 MCV 89.8 fL (80.0-100.0) 06/16/21 05:36 MCH 30.2 pg (27.0-34.0) 06/16/21 05:36 MCHC 33.6 g/dL (33.0-35.0) 06/16/21 05:36 RDW 13.5 % (11.6-16.5) 06/16/21 05:36 Plt Count 314 X10^3/uL (150.0-450.0) 06/16/21 05:36 MPV 7.0 fL (7.4-11.0) L 06/16/21 05:36 Neut % (Auto) 61.6 % (42.0-75.0) 06/16/21 05:36 Lymph % (Auto) 25.1 % (21.0-51.0) 06/16/21 05:36 [place] % (Auto) 8.6 % (0.0-13.0) 06/16/21 05:36 Eos % (Auto) 3.7 % (0.9-2.9) H 06/16/21 05:36 Baso % (Auto) 1.0 % (0.2-1.0) 06/16/21 05:36 Neut # (Auto) 4.3 x10^3/uL (2.2-4.8) 06/16/21 05:36 Lymph # (Auto) 1.7 X10^3/uL (1.3-2.9) 06/16/21 05:36 [place] # (Auto) 0.6 x10^3/uL (0.3-0.8) 06/16/21 05:36 Eos # (Auto) 0.3 x10^3/uL (0.0-0.2) H 06/16/21 05:36 Baso # (Auto) 0.1 X10^3/uL (0.0-0.1) 06/16/21 05:36 Absolute Nucleated RBC 0.1 /100WBC 06/16/21 05:36 Sodium 137 mmol/L (136-145) 06/16/21 05:36 Corrected Sodium 140 mmol/L (136-145) 06/16/21 05:36 Potassium 3.5 mmol/L (3.5-5.1) 06/16/21 05:36 Chloride 103 mmol/L (98-107) 06/16/21 05:36 Carbon Dioxide 28.0 mmol/L (21-32) 06/16/21 05:36 BUN 6 mg/dL (7-18) L 06/16/21 05:36 Creatinine 1.06 mg/dL (0.70-1.30) 06/16/21 05:36 Est GFR (MDRD) Af Amer > 60 (>60) 06/16/21 05:36 Est GFR (MDRD) Non-Af > 60 (>60) 06/16/21 05:36 Glucose 237 mg/dL (65-99) H 06/16/21 05:36 POC Glucose (mg/dL) 228 mg/dL (65-99) H 06/15/21 17:33 Calcium 8.1 mg/dL (8.5-10.1) L 06/16/21 05:36 Corrected Calcium 9.7 mg/dL (8.5-10.1) 06/16/21 05:36 Total Bilirubin 0.50 mg/dL (0.2-1.0) 06/16/21 05:36 AST 12 Units/L (15-37) L 06/16/21 05:36 ALT 19 Units/L (12-78) 06/16/21 05:36 Alkaline Phosphatase 68 Units/L (46-116) 06/16/21 05:36 Total Protein 6.2 g/dL (6.4-8.2) L 06/16/21 05:36 Albumin 2.0 g/dL (3.4-5.0) L 06/16/21 05:36 Globulin 4.2 g/dL (2.5-4.5) 06/16/21 05:36 Albumin/Globulin Ratio 0.5 Ratio (1.1-2.1) L 06/16/21 05:36 Tissue Pathology To follow 06/12/21 12:35 - Assessment and Plan 1: PO laparotomy . recto -sigmoid resection . division of colo-vesical fistula . repair bladder fistula . to remove the Reyes cath .. advance diet . maybe D/C in am . - Problem Patient Problems: Patient Problems Status post colon resection (Acute) Z90.49
[2021-06-16] MEDS ORDERED: JANUVIA PO SCH (09:00)
[2021-06-16] MEDS: PULMICORT NEB TX 0.5 MG NEB SCH ×2 (09:26→21:49)
[2021-06-16] MEDS: NORCO 5/325 MG TAB PO PRN ×2 (13:19→18:48)
[2021-06-16] MEDS: SNACK - Diabetic Appropriate PO SCH (20:11)
[2021-06-16] MEDS: ZOCOR TAB 20 MG PO SCH (21:49)
[2021-06-17] MEDS: NORCO 10/325 TAB PO PRN ×2 (05:01→11:08)
[2021-06-17] MEDS: ZOSYN VIAL 3.375 GRAMS 3.375 G in NS 100 ML IV 100 ML IV SCH (05:01)
[2021-06-17] MEDS: HumuLIN R SUBCUT PRN ×2 (05:41→11:44)
[2021-06-17 06:05] LABS: BASOPHILS % (AUTO) 0.7 % (0.2-1.0); EOSINOPHILS # (AUTO) 0.2 x10^3/uL (0.0-0.2); EOSINOPHILS % (AUTO) 3.5 % (0.9-2.9); HEMATOCRIT 30.1 % (42.0-54.0); HEMOGLOBIN 10.4 g/dL (13.5-18.0); LYMPHOCYTES # (AUTO) 1.3 X10^3/uL (1.3-2.9); LYMPHOCYTES % (AUTO) 19.8 % (21.0-51.0); MEAN CORPUSCULAR HEMOGLOBIN 30.7 pg (27.0-34.0); MEAN CORPUSCULAR HGB CONC 34.6 g/dL (33.0-35.0); MEAN CORPUSCULAR VOLUME 88.9 fL (80.0-100.0); MEAN PLATELET VOLUME 6.9 fL (7.4-11.0); MONOCYTES # (AUTO) 0.7 x10^3/uL (0.3-0.8); MONOCYTES % (AUTO) 10.3 % (0.0-13.0); NEUTROPHILS # (AUTO) 4.4 x10^3/uL (2.2-4.8); NEUTROPHILS % (AUTO) 65.7 % (42.0-75.0); PLATELET COUNT 348 X10^3/uL (150.0-450.0); RED BLOOD COUNT 3.39 X10^6/uL (4.7-6.0); RED CELL DISTRIBUTION WIDTH 13.2 % (11.6-16.5); WHITE BLOOD COUNT 6.8 X10^3/uL (3.6-10.0)
[2021-06-17] MEDS: DUONEB 0.5 MG/3 MG (3 mL) NEB SCH (06:23)
[2021-06-17 06:55] LABS: ALANINE AMINOTRANSFERASE 16 Units/L (12-78); ALKALINE PHOSPHATASE 75 Units/L (46-116); ASPARTATE AMINO TRANSFERASE 11 Units/L (15-37); BLOOD UREA NITROGEN 6 mg/dL (7-18); CARBON DIOXIDE 28.1 mmol/L (21-32); CHLORIDE 103 mmol/L (98-107); COR CA(FOR HYPOALB) 9.6 mg/dL (8.5-10.1); COR NA(FOR HYPERGLY) 140 mmol/L (136-145); CREATININE 0.99 mg/dL (0.70-1.30); SODIUM 138 mmol/L (136-145); TOTAL PROTEIN 6.2 g/dL (6.4-8.2); eGFR NON BLACK RACES > 60 (>60)
[2021-06-17] MEDS: FLOMAX PO SCH (08:50)
[2021-06-17] MEDS: PROTONIX INJ 40 MG VIAL IVP SCH (08:50)
[2021-06-17] MEDS: LOPRESSOR TAB 50 MG PO SCH (08:51)
[2021-06-17] MEDS: PEPCID TAB 40 MG PO SCH (08:51)
[2021-06-17] MEDS: MILK OF MAGNESIA PO SCH (08:51)
[2021-06-17] MEDS: LOVENOX INJ 40 MG SYR SC SCH (08:52)
[2021-06-17] MEDS ORDERED: GLUCOPHAGE XR 24-HR PO SCH (09:00)
[2021-06-17] MEDS: PULMICORT NEB TX 0.5 MG NEB SCH (09:26)
[2021-06-17 13:34] VITALS: BP 153/72
== END 2021-06-17 12:00 | disposition home or self-care (01) | DRG 330 ==
LOC: MED/SURG 08:21
PROVIDERS: ADMIT Surgery; ATTEND Surgery
PROC: [UNRECOGNIZED PROCEDURE] (2021-06-12 11:15)
DX: E11.65 Type 2 diabetes mellitus with hyperglycemia; Z87.440 Personal history of urinary (tract) infections; K57.32 Diverticulitis of large intestine without perforation or abscess without bleeding; N32.1 Vesicointestinal fistula; E78.2 Mixed hyperlipidemia; I10 Essential (primary) hypertension; K21.9 Gastro-esophageal reflux disease without esophagitis

== ENCOUNTER 2022-05-01 15:03 | Observation (INO) ==
[2022-05-01 17:14] VITALS: BMI 37.4
[2022-05-01 17:59] LABS: BASOPHILS # (AUTO) 0.1 X10^3/uL (0.0-0.1); BASOPHILS % (AUTO) 1.1 % (0.2-1.0); EOSINOPHILS # (AUTO) 0.2 x10^3/uL (0.0-0.2); EOSINOPHILS % (AUTO) 2.5 % (0.9-2.9); HEMATOCRIT 36.7 % (42.0-54.0); HEMOGLOBIN 12.4 g/dL (13.5-18.0); LYMPHOCYTES # (AUTO) 2.9 X10^3/uL (1.3-2.9); LYMPHOCYTES % (AUTO) 39.1 % (21.0-51.0); MEAN CORPUSCULAR HEMOGLOBIN 28.8 pg (27.0-34.0); MEAN CORPUSCULAR HGB CONC 33.7 g/dL (33.0-35.0); MEAN CORPUSCULAR VOLUME 85.3 fL (80.0-100.0); MEAN PLATELET VOLUME 7.9 fL (7.4-11.0); MONOCYTES # (AUTO) 0.6 x10^3/uL (0.3-0.8); MONOCYTES % (AUTO) 7.9 % (0.0-13.0); NEUTROPHILS # (AUTO) 3.7 x10^3/uL (2.2-4.8); NEUTROPHILS % (AUTO) 49.4 % (42.0-75.0); RED CELL DISTRIBUTION WIDTH 14.1 % (11.6-16.5); WHITE BLOOD COUNT 7.4 X10^3/uL (3.6-10.0)
[2022-05-01 18:11] LABS: ALANINE AMINOTRANSFERASE 32 Units/L (12-78); ALBUMIN 3.1 g/dL (3.4-5.0); ALKALINE PHOSPHATASE 93 Units/L (46-116); ASPARTATE AMINO TRANSFERASE 21 Units/L (15-37); BLOOD UREA NITROGEN 18 mg/dL (7-18); CALCIUM 8.9 mg/dL (8.5-10.1); CARBON DIOXIDE 28.3 mmol/L (21-32); CHLORIDE 102 mmol/L (98-107); COR CA(FOR HYPOALB) 9.6 mg/dL (8.5-10.1); COR NA(FOR HYPERGLY) 142 mmol/L (136-145); CREATININE 1.16 mg/dL (0.70-1.30); SODIUM 139 mmol/L (136-145); TOTAL PROTEIN 7.1 g/dL (6.4-8.2); eGFR NON BLACK RACES > 60 (>60)
[2022-05-01] MEDS: NS 1,000 ML IV 1,000 ML IV SCH (18:22)
[2022-05-01] MEDS: PEPCID 20 MG VIAL 20 MG in NS 50 ML IV 50 ML IV SCH ×2 (19:29→20:19)
[2022-05-01] MEDS: PROTONIX INJ 40 MG VIAL IVP SCH (20:19)
[2022-05-02 05:37] LABS: BASOPHILS % (AUTO) 0.5 % (0.2-1.0); EOSINOPHILS # (AUTO) 0.2 x10^3/uL (0.0-0.2); EOSINOPHILS % (AUTO) 2.3 % (0.9-2.9); HEMATOCRIT 35.1 % (42.0-54.0); LYMPHOCYTES # (AUTO) 2.3 X10^3/uL (1.3-2.9); LYMPHOCYTES % (AUTO) 34.3 % (21.0-51.0); MEAN CORPUSCULAR HGB CONC 34.3 g/dL (33.0-35.0); MEAN CORPUSCULAR VOLUME 84.4 fL (80.0-100.0); MONOCYTES # (AUTO) 0.6 x10^3/uL (0.3-0.8); MONOCYTES % (AUTO) 8.4 % (0.0-13.0); NEUTROPHILS # (AUTO) 3.7 x10^3/uL (2.2-4.8); NEUTROPHILS % (AUTO) 54.5 % (42.0-75.0); RED BLOOD COUNT 4.16 X10^6/uL (4.7-6.0); RED CELL DISTRIBUTION WIDTH 13.8 % (11.6-16.5); WHITE BLOOD COUNT 6.8 X10^3/uL (3.6-10.0)
[2022-05-02 05:45] LABS: ALANINE AMINOTRANSFERASE 31 Units/L (12-78); ALBUMIN 2.8 g/dL (3.4-5.0); ALKALINE PHOSPHATASE 75 Units/L (46-116); ASPARTATE AMINO TRANSFERASE 24 Units/L (15-37); BLOOD UREA NITROGEN 14 mg/dL (7-18); CALCIUM 8.6 mg/dL (8.5-10.1); CARBON DIOXIDE 27.7 mmol/L (21-32); CHLORIDE 104 mmol/L (98-107); COR CA(FOR HYPOALB) 9.6 mg/dL (8.5-10.1); COR NA(FOR HYPERGLY) 141 mmol/L (136-145); CREATININE 1.06 mg/dL (0.70-1.30); SODIUM 140 mmol/L (136-145); TOTAL PROTEIN 6.4 g/dL (6.4-8.2); eGFR NON BLACK RACES > 60 (>60)
[2022-05-02] MEDS: NS 1,000 ML IV 1,000 ML IV SCH ×3 (09:27→23:00)
[2022-05-02] MEDS: PEPCID 20 MG VIAL 20 MG in NS 50 ML IV 50 ML IV SCH ×2 (09:28→20:29)
[2022-05-02] MEDS: PROTONIX INJ 40 MG VIAL IVP SCH ×2 (09:28→20:30)
--- NOTE | 2022-05-02 12:58 | DR.UPDATE ---
H&P Update History and Physical Update: History and Physical reviewed and patient examined. Changes noted: Yes with the following: PATIENT WAS A DIRECT ADMISSION DUE TO COMPLAINTS OF RECTAL BLEEDING AND WEAKNESS FOR THE PAST FEW WEEKS. ON ADMISSION, VITALS WERE 98.3-86-20-95%-171/84. LABS WERE OBTAINED. WBC 7.4, RBC 4.30, HGB 12.4, HCT 36.7, SODIUM 139, POTASSIUM 4.2, CHLORIDE 102, BUN 18, CREATININE 1.16, GLUCOSE 210, CALCIUM 8.9, AST 21, ALT 32, ALK PHOS 93, TOTAL PROTEIN 7.1, ALBUMIN 3.1. COVID-19 NEGATIVE. HE WAS STARTED ON NORMAL SALINE AT 80 ML/HR, PEPCID 20MG IV Q12H, PROTONIX 40MG IV BID. WE WILL RESUME HIS HOME MEDICATIONS OF TAMSULOSIN, ZOCOR, LYRICAL, METOPROLOL, METFORMIN, VITAMIN B12, GABAPENTIN, VITAMIN D2, AND JANUVIA. WE WILL CONSULT WITH , GENERAL SURGEON, FOR POSSIBLE COLONOSCOPY. OTHERWISE, WE WILL FOLLOW-UP WITH AM LABS AND CONTINUE TO MONITOR. TIME SPENT ON CLINICAL ASSESSMENT, REVIWING LABS AND IMAGING, DECISION MAKING, AND DOCUMENTATION GREATER THAN 75 MINUTES. H&P Reviewed: Yes Patient was examined?: Yes
[2022-05-02] MEDS ORDERED: PATIENT'S HOME MEDICATION (Mecobalamin (Vitamin B12) [B12 Active] 1,000 mcg Tablet,Chewabl PO SCH (13:15)
[2022-05-02] MEDS ORDERED: GLUCOPHAGE ONE ×2 (13:45→19:28)
[2022-05-02] MEDS: FLOMAX PO SCH (13:56)
[2022-05-02] MEDS: LYRICA CAP 150 mg PO SCH ×2 (13:56→20:27)
[2022-05-02] MEDS: GOLYTELY or GAVILYTE or Equivalent PO SCH (13:56)
[2022-05-02] MEDS: GLUCOPHAGE PO SCH ×2 (13:56→20:27)
[2022-05-02] MEDS: LOPRESSOR TAB 50 MG PO SCH ×2 (13:57→20:27)
[2022-05-02] MEDS ORDERED: NEURONTIN CAP 400 MG PO SCH (14:00)
[2022-05-02] MEDS ORDERED: SNACK - Diabetic Appropriate PO SCH (20:00)
[2022-05-02] MEDS ORDERED: ZOCOR TAB 20 MG PO SCH (21:00)
[2022-05-03 05:28] LABS: BASOPHILS % (AUTO) 0.4 % (0.2-1.0); EOSINOPHILS # (AUTO) 0.2 x10^3/uL (0.0-0.2); EOSINOPHILS % (AUTO) 2.4 % (0.9-2.9); HEMOGLOBIN 11.6 g/dL (13.5-18.0); LYMPHOCYTES % (AUTO) 29.3 % (21.0-51.0); MEAN CORPUSCULAR HEMOGLOBIN 29.1 pg (27.0-34.0); MEAN CORPUSCULAR HGB CONC 34.3 g/dL (33.0-35.0); MEAN CORPUSCULAR VOLUME 84.8 fL (80.0-100.0); MONOCYTES # (AUTO) 0.5 x10^3/uL (0.3-0.8); MONOCYTES % (AUTO) 7.7 % (0.0-13.0); NEUTROPHILS # (AUTO) 4.2 x10^3/uL (2.2-4.8); NEUTROPHILS % (AUTO) 60.2 % (42.0-75.0); RED BLOOD COUNT 4.01 X10^6/uL (4.7-6.0)
[2022-05-03 05:53] LABS: ALANINE AMINOTRANSFERASE 37 Units/L (12-78); ALBUMIN 2.8 g/dL (3.4-5.0); ALKALINE PHOSPHATASE 65 Units/L (46-116); ASPARTATE AMINO TRANSFERASE 34 Units/L (15-37); BLOOD UREA NITROGEN 13 mg/dL (7-18); CALCIUM 7.7 mg/dL (8.5-10.1); CARBON DIOXIDE 24.5 mmol/L (21-32); CHLORIDE 105 mmol/L (98-107); COR CA(FOR HYPOALB) 8.7 mg/dL (8.5-10.1); COR NA(FOR HYPERGLY) 143 mmol/L (136-145); CREATININE 1.15 mg/dL (0.70-1.30); SODIUM 142 mmol/L (136-145); TOTAL PROTEIN 6.1 g/dL (6.4-8.2); eGFR NON BLACK RACES > 60 (>60)
[2022-05-03] MEDS ORDERED: JANUVIA PO SCH (09:00)
[2022-05-03] MEDS: PROTONIX INJ 40 MG VIAL IVP SCH (09:33)
[2022-05-03] MEDS: PEPCID 20 MG VIAL 20 MG in NS 50 ML IV 50 ML IV SCH (09:33)
[2022-05-03] MEDS: GLUCOPHAGE PO SCH (09:34)
[2022-05-03] MEDS: LOPRESSOR TAB 50 MG PO SCH (09:34)
[2022-05-03] MEDS: LYRICA CAP 150 mg PO SCH (09:34)
[2022-05-03] MEDS: FLOMAX PO SCH (09:34)
[2022-05-03] MEDS ORDERED: NS 1,000 ML IV 1,000 ML ONE (10:00)
[2022-05-03] MEDS ORDERED: XYLOCAINE 2 % (PLAIN) ONE (10:13)
[2022-05-03] MEDS ORDERED: DIPRIVAN VIAL 20 ML ONE (10:19)
[2022-05-03] MEDS ORDERED: VERSED ONE (10:19)
[2022-05-03 11:50] VITALS: BP 109/59
[2022-05-03] MEDS: GOLYTELY or GAVILYTE or Equivalent PO SCH (12:09)
== END 2022-05-03 13:55 | disposition home or self-care (01) ==
LOC: MED/SURG
PROVIDERS: ADMIT Internal Medicine; ATTEND Internal Medicine
DX: N40.0 Benign prostatic hyperplasia without lower urinary tract symptoms; E11.65 Type 2 diabetes mellitus with hyperglycemia; R53.1 Weakness; K21.9 Gastro-esophageal reflux disease without esophagitis; K63.5 Polyp of colon; K64.8 Other hemorrhoids; K92.1 Melena; I10 Essential (primary) hypertension; Z20.822 Contact with and (suspected) exposure to COVID-19